=== PATIENT | female | born 1955 | race Caucasian/White ===

== ENCOUNTER 2018-03-01 15:33 | Inpatient (IN) | payer MEDICARE, OTHER ==
[2018-03-01] MEDS ORDERED: Fentanyl 100 MCG/2 ML VIAL ONE (17:17)
[2018-03-01 17:21] LABS: Troponin I 1.051 ng/mL (< 0.028)
[2018-03-01] MEDS ORDERED: Metoprolol Tartrate 5 MG/5 ML VIAL ONE (18:46)
[2018-03-01] MEDS ORDERED: Acetaminophen 500 MG TAB ONE (18:46)
[2018-03-01] MEDS ORDERED: RENALLY ADJUST ANTIBIOTICS IVPB PRN (19:54)
[2018-03-01] MEDS ORDERED: Bisacodyl 5 MG TAB PO PRN (19:57)
[2018-03-01] MEDS ORDERED: Dextrose 5% in Water 1,000 ML IV PRN (19:57)
[2018-03-01] MEDS ORDERED: Dextrose 50% Abboject 50 ML SYRINGE SLOW IVP PRN (19:57)
[2018-03-01] MEDS ORDERED: Acetaminophen 650 MG Suppository PR PRN (19:57)
[2018-03-01 20:01] LABS: Troponin I 1.051 ng/mL (< 0.028)
--- NOTE | 2018-03-01 20:12 | HP ---
PRIMARY CARE PROVIDER: Priti Acevedo MD CHIEF COMPLAINT: Altered mental status. HISTORY OF PRESENT ILLNESS: Ms. Miranda is a pleasant 62-year-old lady who was seen at [facility] on 03/01/2018 following transfer from [facility]. She is a [facility] resident. She reportedly had episodes of altered mental status at the snf and she was not doing any of her normal activities such as smoking and eating. She was also rep ortedly diaphoretic and had blood glucose of 305. She was also reportedly tachycardic and hypotensiv e. The patient currently is actually more alert. She knows that she is at [facility]. She is oriented to person as well. She is able to hold brief conversations, but is also teresita rgic at times. She denies any chest pain at this time. She reports that she has been feeling weak. She denies any nausea or vomiting. She denies any abdominal pain. She denies any dysuria or increased frequency of urination. She denies any fevers or chills. REVIEW OF SYSTEMS: All other systems were reviewed and found to be negative. PAST MEDICAL HISTORY: Dyslipidemia, hypertension, insulin-dependent diabetes mellitus, neuralgia fal se, tubulointerstitial nephritis, coronary artery disease, peripheral vascular disease, hyperthyroidi sm, polysubstance abuse, chronic kidney disease stage 3, anemia herniated disk at L5-S1, CVA with lef t hemiplegia, restless leg syndrome, recurrent urinary tract infections, retinopathy and left femoral neck fracture. PAST SURGICAL HISTORY: Hysterectomy, tubal ligation, right below knee amputation, left above knee am putation, left fifth toe amputation, left nephrectomy, and partial diskectomy. PSYCHIATRIC HISTORY: Anxiety and depression. SOCIAL HISTORY: The patient denies alcohol use or recreational drug use. She smokes 1 pack of cigar ettes a day. CODE STATUS: She came with an out of hospital do not resuscitate order. I discussed with the huy etienne. She confirms that she is DNR. ALLERGIES: CODEINE, HYDROCODONE, MORPHINE, PHENERGAN. CURRENT MEDICATIONS: Gabapentin 300 mg 3 times a day, Levemir 40 units subcutaneously daily, Norvasc 5 mg daily, Zoloft 25 mg daily, aspirin 325 mg daily, tramadol 50 mg 2 times a day, Tylenol 500-1000 mg every 6 hours as needed, NovoLog by sliding scale, Zofran 4 mg every 6 hours as needed, hydrocort isone topical as needed, simvastatin 20 mg daily, senna with docusate 8.6/50 mg daily as needed, ferr ous sulfate 325 mg daily, Amitiza 24 mcg twice daily, Lopid 600 mg twice daily, and duloxetine 30 mg daily. PHYSICAL EXAMINATION: GENERAL: Ms. Jerez is sleepy, but arousable, not in acute distress. VITAL SIGNS: Blood pressure is 128/63, pulse 94, respiratory rate 14, and oxygen saturation 98% on r oom air. Earlier, she had pulse of 132 and respiratory rate of 21. Her T-max in the emergency room here was 101 degrees Fahrenheit. EYES: No scleral icterus. No conjunctival pallor. ENT: Dry mucosal membranes, no oropharyngeal erythema or exudates. NECK: Supple, nontender. Trachea is midline. RESPIRATORY: Accessory muscles of breathing are not active. Chest wall movements are symmetric bila terally. LUNGS: Clear to auscultation without wheeze, rhonchi, or crepitations. CARDIOVASCULAR: S1 and S2 are heard, tachycardic and regular. No carotid bruit, no pericardial rub. ABDOMEN: Soft, nontender, bowel sounds heard. NEUROLOGIC: Full neurologic examination not possible secondary to patient's noncooperation. No faci al droop. The patient has left-sided weakness. MUSCULOSKELETAL: Status post right below knee amputation and left above knee amputation. SKIN: No rashes or subcutaneous nodules. LYMPHATIC: No cervical lymphadenopathy. PSYCHIATRIC: Normal mood, normal affect, patient is oriented to person and place, not to time. DATABASE: Ms. Jerez's labs and investigations were reviewed. I reviewed her electrocardiogram, [facility] shows normal sinus rhythm, no ST changes to suggest an acute coronary syndrome. I also reviewed h er chest x-ray, which does not show any pulmonary infiltrates. She also had noncontrast CT scan of t brain, which did not show any acute hemorrhage. She has extensive bilateral infarct changes and a ssociated encephalomalacia. She has normal sodium, normal potassium, normal anion gap of 18, slightl y decreased carbon dioxide of 17, elevated blood urea nitrogen of 38, elevated creatinine of 2.86, la st known creatinine 0.87 on 10/11/2015, normal lactic acid, normal total bilirubin, normal AST, krystina l ALT, normal alkaline phosphatase, elevated troponin I of 1.051, normal albumin, leukocytosis with 1 8,400 white cells, of which 17% are from band neutrophils and 70% are neutrophils, normal hemoglobin, normal platelet count and urinalysis that is positive for moderate amount of leukocyte esterase and large amount of blood as well as trace amount of ketones. ASSESSMENT AND PLAN: Ms. Jerez is a pleasant 62-year-old lady who was seen at [facility] on 03/01/2018. Her problem list includes: 1. Non-ST elevation myocardial infarction: Ms. Jerez is presenting with non-ST elevation myocardia l infarction. She will be admitted to the hospital for further management including aspirin. She matamoros s already received a dose of Lovenox and given her renal insufficiencies status, we will decide on fu rther doses in the morning. Alternatively, she may need heparin drip. Cardiology service will be co nsulted. Alternate diagnosis could be demand ischemia secondary to sepsis and from urinary tract inf ection. 2. Sepsis: Her presentation meets the criteria for sepsis. She will be admitted to the hospital an d will receive intravenous fluids and antibiotics. 3. Urinary tract infection. She has received ceftriaxone, which I will continue. 4. Hypertension: Monitor vital signs, titrate antihypertensives as needed. 5. Diabetes mellitus. Start Accu-Cheks, insulin sliding scale. 6. Acute on chronic renal insufficiency. Provide intravenous fluids, recheck creatinine level. 7. Dyslipidemia: Continue statin. Ms. Jerez had urinary tract infection with ESBL positive Escherichia coli in 2013, although she had subsequent infections with Escherichia coli that were either pansensitive or only resistant to fluoro quinolones and ampicillin. Given the acuity of her presentation, I am electing to treat her with int ravenous vancomycin to cover other sources of infection as well as intravenous meropenem to cover ESB L Escherichia coli. We will narrow down the antibiotic spectrum once cultures available. We will al so order blood cultures and urine cultures. Many thanks for allowing me to participate in your patient's care. Please feel free to contact me wi th any questions or concerns. LEVEL OF RISK: High. LEVEL OF COMPLEXITY: High.
[2018-03-01] MEDS ORDERED: Ibuprofen 200 MG TAB ONE (20:23)
[2018-03-01] MEDS ORDERED: Norepinephrine 8 MG/0.9% NS 250 ML ONE (21:43)
[2018-03-01] MEDS ORDERED: MEROPENEM 1 GM/50 ML 1 GM in Premix Bag 1 BAG IVPB SCH (22:00)
--- NOTE | 2018-03-01 22:55 | RAD ---
PORTABLE AP CHEST X-RAY 03/01/18 HISTORY: Central line placement. COMPARISON: 03/01/18 at 1259 hours. FINDINGS: There has been interval placement of right internal jugular vein central venous catheter with tip ove rlying the expected location of the SVC. No pneumothorax or pleural effusion is seen. There is mild p rominence of the right paramediastinal soft tissues, but this is similar to a study on 04/15/15 and m ay be related to vascular structures. Calcified granuloma is seen at the lateral right lung base. The cardiac silhouette is magnified by projection. Pulmonary vasculature is within normal limits. The scarlett ngs are clear. No other interval change. IMPRESSION: Interval placement of a right internal jugular vein central venous catheter without evidence of pneum othorax. POS: JACQUELINE
[2018-03-01 23:37] LABS: Lactic Acid 3.2 mmol/L (0.5-2.2)
[2018-03-01 23:48] LABS: Troponin I 1.214 ng/mL (< 0.028)
[2018-03-02] MEDS ORDERED: Acetaminophen 325 MG TAB ONE (00:44)
[2018-03-02] MEDS ORDERED: Vancomycin HCl 1 GM in Premix Bag 1 BAG IVPB SCH (01:30)
[2018-03-02] MEDS ORDERED: MEROPENEM 1 GM/50 ML 1 GM in Premix Bag 1 BAG IVPB SCH (02:00)
[2018-03-02] MEDS ORDERED: cefTRIAXone\\ROCEPHIN 1 GM VIAL ONE (02:17)
[2018-03-02 03:55] LABS: Hemoglobin 11.6 g/dL (12.0-16.0); Mean Corpuscular HGB CONC 34.1 g/dL (32.0-36.0); Mean Corpuscular Hemoglobin 32.8 pg (27.0-31.0); Mean Corpuscular Volume 96.2 fL (78.0-98.0); Mean Platelet Volume 10.2 fL (7.4-10.4); Platelet Count 148 thou/uL (130-400); RBC Distribution Width 11.9 % (11.5-14.5); Red Blood Cell (RBC) Count 3.53 mill/uL (4.20-5.40); White Blood Cell (WBC) Count 19.9 thou/uL (4.8-10.8)
[2018-03-02 03:56] LABS: Band 40 % (5-11); Lymphocytes 2 % (21-51); MDiff Complete? YES; Metamyelocyte 4 % (0-0); Monocytes 1 % (0-10); Neutrophil 53 % (42-75); PLT Morphology Comment Appears Adequate
[2018-03-02 04:03] LABS: Anion Gap 21 mmol/L (10-20); BUN (Urea Nitrogen) 42 mg/dL (9.8-20.1); Calc. Creatinine Clearance 0 mL/min (70-130); Carbon Dioxide 10 mmol/L (22-29); Chloride 112 mmol/L (98-107); Estimated GFR-MDRD 13; Glucose 181 mg/dL (70-105); Potassium 4.5 mmol/L (3.5-5.1); Sodium 138 mmol/L (136-145)
[2018-03-02] MEDS ORDERED: Fentanyl 100 MCG/2 ML VIAL SLOW IVP PRN (04:05)
[2018-03-02] MEDS: Sodium Chloride 0.9% 1,000 ML IV SCH ×2 (04:07→05:53)
[2018-03-02] MEDS: Nicotine 21 MG PATCH TD SCH ×2 (04:09→21:11)
[2018-03-02] MEDS ORDERED: Vancomycin HCl 750 MG in Sodium Chloride 0.9% 250 ML 250 ML IVPB SCH (04:15)
[2018-03-02 04:34] VITALS: BMI 23.7
[2018-03-02] MEDS ORDERED: Norepinephrine 8 MG/250 ML BAG IVPB PRN (04:35)
[2018-03-02] MEDS: HumaLOG 300 UNITS/3 ML VIAL SC PRN ×2 (05:59→11:19)
[2018-03-02] MEDS: Sodium Chloride 0.45% 1,000 ML IV SCH ×3 (10:15→21:07)
[2018-03-02] MEDS ORDERED: Sodium Chloride 0.45 % 250 ML BAG IV SCH (10:15)
--- NOTE | 2018-03-02 10:18 | PQF ---
DATE: 03-02-18 ATTN: DR. BERTIN HERNANDEZ Please exercise your independent, professional judgment in responding to the clarification form. Clinical indicators are provided on the bottom of this form for your review Please check appropriate box(s): [ x ] Acute Renal Failure (ARF) / Acute Kidney Injury (ALEISHA) [ ] Acute on Chronic Renal Failure please specify Stage of CKD (see below) [ ] CKD without ARF/ALEISHA please specify Stage of CKD [ ] Other diagnosis [ ] Unable to determine In addition, please specify: Present on Admission (POA): [ ] Yes [ ] No [ ] Unable to determine National Kidney Foundation Guidelines for CKD Staging Stage I Kidney damage with normal or increased GFR GFR > 90 Stage II Kidney damage with mildly decreased GFR GFR 60- 89 Stage III Kidney damage with moderately decreased GFR GFR 30-59 Stage IV Kidney damage with severely decreased GFR GFR 16-29 Stage V Kidney failure GFR<15 ESRD End Stage Renal Disease On dialysis Acute Renal Failure/Acute Kidney Failure defined as: Increases in SCr by (>) 0.3 mg/dl within 48 hours OR- Increases in SCr by (>) 1.5 times baseline, known or presumed to have occurred within the prior 7 days OR- Urine volume < 0.5 ml/kg/hour for 6 hours (KDIGO supplement 2012 for RIFLE/ELVIN criteria) For continuity of documentation, please document condition throughout progress notes and discharge summary. Thank You. CLINICAL INDICATORS - SIGNS / SYMPTOMS / LABS ER: ARF, PAST MEDICAL HX CKD 3 H&P: PAST MEDICAL HX: CKD 3 H&P: ACUTE ON CHRONIC RENAL INSUFFICIENCY. PROVIDE IVF, RECHECK CREATININE LEVEL. GFR: 03-02-18: 13 CREATININE: 03-02-18: 3.53 BUN: 03-02-18: 42 RISK FACTORS: H&P: SEPSIS, NSTEMI, UTI, A CUTE ON CHRONIC INSUFF. ER: HX OF TABULO-INTERSTITIAL NEPHRITIS, CKD3 TREATMENTS: ER: NS IVF H&P: ACUTE ON CHRONIC RENAL INSUFFICIENCY. PROVIDE IVF, RECHECK CREATININE LEVEL. (This form is maintained as a part of the permanent medical record) 2014 [employer]. All Rights Reserved [email or web address] [email or web address] Office: [phone] EMELIA
[2018-03-02] MEDS ORDERED: Sodium Chloride 0.45% 500 ML IV SCH (10:30)
--- NOTE | 2018-03-02 12:25 | PDOC.PN ---
- Subjective Encounter Start Date: 03/02/18 Encounter Start Time: 11:00 Subjective: awakens easily, but lethargic -: follows simple verbal stimuli -: no sob - Objective Resuscitation Status: Resuscitation Status DNR:Do Not Resuscitate MAR Reviewed: Yes Vital Signs & Weight: Vital Signs (12 hours) Temp Pulse Resp Pulse Ox 03/02/18 11:00 98.8 F 03/02/18 08:00 98.4 F 104 H 21 H 03/02/18 07:00 98.4 F 03/02/18 04:00 98.8 F 93 14 93 L Weight Weight 151 lb 10.848 oz Most Recent Monitor Data Heart Rate from ECG 126 NIBP 109/62 NIBP BP-Mean 71 Respiration from ECG 25 SpO2 95 I&O: 03/01/18 03/02/18 03/03/18 06:59 06:59 06:59 Intake Total 846 Output Total 0 Balance 846 Result Diagrams: 03/02/18 03:26 03/02/18 03:26 Additional Labs: Accuchecks 03/02/18 03/02/18 11:07 05:55 POC Glucose 159 H 195 H Phys Exam - Physical Examination HEENT: PERRLA, sclera anicteric Neck: no JVD, supple Respiratory: no wheezing, no rales Cardiovascular: RRR, no significant murmur Gastrointestinal: soft, non-tender, positive bowel sounds Musculoskeletal: pulses present left aka, right bka Neurological: non-focal, moves all 4 limbs Dx/Plan (1) Urinary tract infection Status: Acute Qualifiers: Urinary tract infection type: acute cystitis Hematuria presence: without hematuria Qualified Code(s): N30.00 - Acute cystitis without hematuria (2) Acute encephalopathy Code(s): G93.40 - ENCEPHALOPATHY, UNSPECIFIED Status: Acute (3) Sepsis Code(s): A41.9 - SEPSIS, UNSPECIFIED ORGANISM Status: Acute Qualifiers: Sepsis type: sepsis due to unspecified organism Qualified Code(s): A41.9 - Sepsis, unspecified organism (4) Dehydration, moderate Code(s): E86.0 - DEHYDRATION Status: Acute (5) Hemiparesis due to old cerebrovascular accident Code(s): I69.359 - HEMIPLGA FOLLOWING CEREBRAL INFARCTION AFFECTING UNSP SIDE Status: Chronic Comment: left hemiplegia with contracture in UE (6) h/o left nephrectomy Status: Chronic (7) PVD (peripheral vascular disease) Code(s): I73.9 - PERIPHERAL VASCULAR DISEASE, UNSPECIFIED Status: Chronic (8) Anemia Code(s): D64.9 - ANEMIA, UNSPECIFIED Status: Chronic Qualifiers: Anemia type: unspecified type Qualified Code(s): D64.9 - Anemia, unspecified (9) CAD (coronary artery disease) Code(s): I25.10 - ATHSCL HEART DISEASE OF [place] CORONARY ARTERY W/O ANG PCTRS Status: Chronic Qualifiers: Coronary Disease-Associated Artery/Lesion type: [place] artery [place] vs. transplanted heart: [place] heart Associated angina: with stable angina Qualified Code(s): I25.118 - Atherosclerotic heart disease of [place] coronary artery with other forms of angina pectoris (10) DM type 2 (diabetes mellitus, type 2) Status: Chronic Qualifiers: Diabetes mellitus skilled nursing insulin use: with skilled nursing use Diabetes mellitus complication status: with kidney complications Diabetes mellitus complication detail: with chronic kidney disease Chronic kidney disease stage : stage 3 (moderate) Qualified Code(s): E11.22 - Type 2 diabetes mellitus with diabetic chronic kidney disease; N18.3 - Chronic kidney disease, stage 3 ( moderate); Z79.4 - intermediate accountant (current) use of insulin (11) HLD (hyperlipidemia) Code(s): E78.5 - HYPERLIPIDEMIA, UNSPECIFIED Status: Chronic Qualifiers: Hyperlipidemia type: unspecified Qualified Code(s): E78.5 - Hyperlipidemia , unspecified (12) HTN (hypertension) Code(s): I10 - ESSENTIAL (PRIMARY) HYPERTENSION Status: Chronic Comment: currently hypotensive due to sepsis (13) NSTEMI (non-ST elevated myocardial infarction) Code(s): I21.4 - NON-ST ELEVATION (NSTEMI) MYOCARDIAL INFARCTION Status: Acute - Plan taylor cultures including urine if not done so far -: is off levophed, getting 1 liter bolus fluids, then 1/2 ns -: is on vanc and meropenem, has 40% bands -: add aspirin, echo -: watch for renal function, creatinine around 3.5, may cancel cardio consult * . Review of Systems - Medications/Allergies Allergies/Adverse Reactions: Allergies Allergy/AdvReac Type Severity Reaction Status Date / Time codeine Allergy Severe Short of Verified 10/09/15 22:41 Breath hydrocodone Allergy Emesis Verified 10/09/15 22:41 morphine Allergy Verified 10/09/15 22:41 promethazine HCl Allergy Emesis Verified 10/09/15 22:41 [From Phenergan] BLACK IBRAHIM SODA Allergy Mild ITCH Uncoded 10/18/14 14:28 Medications: Current Medications Acetaminophen (Tylenol) 650 mg PO Q4H PRN PRN Reason: Headache/Fever or Pain Acetaminophen (Tylenol) 650 mg MT Q4H PRN PRN Reason: Headache/Fever or Pain Bisacodyl (Dulcolax) 10 mg PO DAILYPRN PRN PRN Reason: Constipation Dextrose/Water (Dextrose 50%) 25 gm SLOW IVP PRN PRN PRN Reason: Hypoglycemia Glucagon (Glucagon) 1 mg IM PRN PRN PRN Reason: Hypoglycemia Dextrose/Water (D5w) 1,000 mls @ 0 mls/hr IV .Q0M PRN PRN Reason: Hypoglycemia Vancomycin HCl 750 mg/ Sodium (Chloride) 250 mls @ 250 mls/hr IVPB .PENDING LEVEL CARMELA Meropenem 500 mg/ Sodium (Chloride) 100 mls @ 200 mls/hr IVPB 0100,1300 [facility] Norepinephrine Bitartrate (Levophed) 250 mls @ 0 mls/hr IVPB INF PRN; Protocol PRN Reason: Blood Pressure Sodium Chloride (1/2 Normal Saline) 1,000 mls @ 100 mls/hr IV .Q10H [facility] Last Admin: 03/02/18 10:15 Dose: 1,000 mls Insulin Human Lispro (Humalog) 0 units SC .MILD SLIDING SCALE PRN PRN Reason: Mild Correctional Scale Last Admin: 03/02/18 11:19 Dose: 2 unit Miscellaneous Medication (Pharmacy To Dose) 1 each IVPB PRN PRN PRN Reason: Pharmacy to dose Nicotine (Nicoderm Patch) 21 mg TD Q24HR [facility] Last Admin: 03/02/18 04:09 Dose: Not Given Sodium Chloride (Flush - Normal Saline) 10 ml IVF Q12HR [facility] Last Admin: 03/02/18 09:00 Dose: 10 ml Sodium Chloride (Flush - Normal Saline) 10 ml IVF PRN PRN PRN Reason: Saline Flush
[2018-03-02] MEDS: Meropenem 500 MG in Sodium Chloride 0.9% 100 ML IVPB SCH (14:38)
--- NOTE | 2018-03-02 16:51 | CON ---
DATE OF CONSULTATION: 03/02/2018 REASON FOR CONSULTATION: Elevated troponin. HISTORY OF PRESENT ILLNESS: Ms. Jerez is an unfortunate 62-year-old woman who I have seen and evalu ated in the past. She has a history of CAD, status post stent placement to the LAD in 2008. She has had severe PVD with bilateral AKA. She has been lost to follow up. She was last seen in 2014. She recently presented with altered mental status. During my interview, she is very difficult to dir ect and vague in her symptoms. She currently resides in a retirement. Initial diagnosis of sepsis . She denies chest pain, pressure, or other associated symptoms. PAST MEDICAL HISTORY: CAD status post stent placement, hyperlipidemia, hypertension, PVD, status pos t AKA bilaterally, hyperthyroidism, polysubstance abuse, chronic kidney disease, anemia, CVA, retinop athy, hysterectomy, BTL, nephrectomy, diskectomy, anxiety disorder, depression. SOCIAL HISTORY: Positive tobacco use. ALLERGIES: CODEINE, HYDROCODONE, MORPHINE. HOME MEDICATIONS: Gabapentin, Zoloft, Levemir, tramadol, Zofran, hydrocortisone, simvastatin, ferrou s sulfate, Lopid and duloxetine. REVIEW OF SYSTEMS: Difficult to assess due to altered mental status. PHYSICAL EXAMINATION: VITAL SIGNS: Blood pressure 97/54, pulse 118, respirations 22, prescribed low dose norepinephrine. GENERAL: Patient is a pleasant female who is in no acute distress. The patient appears her stated a ge. NEUROLOGIC: The patient is alert and oriented times 3 with no focal neurologic deficits. HEENT: Sclerae without icterus. Mouth has moist mucous membranes with normal pallor. NECK: No JVD. Carotid upstroke brisk. No bruits bilaterally. LUNGS: Clear to auscultation with unlabored respirations. BACK: No scoliosis or kyphosis. CARDIAC: Regular rate and rhythm with normal S1 and S2. No S3 or S4 noted. No significant rubs, mu rmurs, thrills, or gallops noted throughout the precordium. PMI is not displaced. There is no corby ternal heave. ABDOMEN: Soft, nontender, nondistended. No peritoneal signs present. No hepatosplenomegaly. No ab normal striae. EXTREMITIES: Bilateral AKA. SKIN: No gross abnormalities. PERTINENT LABORATORY DATA: White blood cell count 19,000, hemoglobin 11.6, platelet count 148. Crea tinine 3.57. Peak troponin 1.2. IMPRESSION: 1. Elevated troponin. 2. Altered mental status. 3. ?Sepsis. 4. Severe coronary artery disease, status post stent placement. RECOMMENDATIONS: Ms. Jerez has no current symptoms suggesting angina. She has no acute finding on her EKG. It is likely demand ischemia. At this point, I recommend continued conservative therapy. Recommend continuing pressor support with norepinephrine. She has been covered with antibiotic thera py.
[2018-03-02] MEDS: Acetaminophen 325 MG TAB PO PRN ×2 (17:10→21:22)
[2018-03-03] MEDS: Meropenem 500 MG in Sodium Chloride 0.9% 100 ML IVPB SCH (01:47)
[2018-03-03 02:21] LABS: Vancomycin, Random 12.3 ug/mL (See Comment)
--- NOTE | 2018-03-03 02:50 | CON ---
DATE OF CONSULTATION: 03/02/2018 Ms. Jerez is a 62-year-old female who has peripheral vascular disease and coronary disease. She has had [id number] amputations. She is a poor historian. She is residing in a fdc. She had no complaints when I evaluated her. I was consulted because of her presence in the Critical Care Unit. Apparently, she was admitted with hypotension. PAST MEDICAL HISTORY: Remarkable for, 1. Hyperthyroidism. 2. History of substance abuse. 3. History of chronic kidney disease. 4. History of cerebrovascular accident. 5. History of retinopathy. 6. Status post tubal ligation. 7. Status post hysterectomy. 8. History of nephrectomy. 9. History of diskectomy. 10. History of anxiety and depression. SOCIAL HISTORY: She is a smoker, is not a drinker. FAMILY HISTORY: Not obtained. ALLERGIES: HYDROCODONE, CODEINE, and MORPHINE. MEDICATIONS PRIOR TO ADMISSION: Gabapentin, Zoloft, insulin, tramadol, Zofran, hydrocortisone, simvastatin, iron, Lopid, duloxetine. REVIEW OF SYSTEMS: 10 point review of systems completed, not obtainable. PHYSICAL EXAMINATION: GENERAL: Ms. Jerez is a 62-year-old female who has peripheral vascular disease and coronary disease. VITAL SIGNS: Blood pressure is 101/60, heart rate 105, respiratory rates in the teens, oximetry is 94. HEENT: Sclerae are anicteric. Extraocular movements appeared to be full. NECK: Without lymphadenopathy. LUNGS: Clear anteriorly. HEART: Regular rhythm. No S3. ABDOMEN: Soft and nontender. EXTREMITIES: Her amputation sites are well healed. Left AKA, Right BKA LABORATORY DATA: White count 19.9, hemoglobin 11.6, platelets 148. Creatinine is 3.53 (with no legs), potassium is 4.5, chloride is 112, bicarbonate is 10, anion gap 16. IMPRESSION: Hypotension. It is unclear whether or not she is just severely dehydrated or septic. Microbiology cultures are negative at 24 hours. There is no urinalysis here. Her urine specimen at an outside hospital showed 21-50 red cells and greater than 50 white cells, but no positive cultures come back yet. She appears to be clinically improving, at least stable. She is a DO NOT RESUSCITATE patient. She remains stable. She will be transferred out of Critical Care Unit. This is a 50-minute consult, with greater than 50% of the time spent on the unit coordinating care. EMELIA
[2018-03-03] MEDS ORDERED: Vancomycin HCl 500 MG in Sodium Chloride 0.9% 100 ML IVPB SCH (03:00)
[2018-03-03] MEDS: Sodium Chloride 0.45% 1,000 ML IV SCH (05:37)
[2018-03-03 08:40] LABS: Anion Gap 15 mmol/L (10-20); BUN (Urea Nitrogen) 54 mg/dL (9.8-20.1); Calc. Creatinine Clearance 14 mL/min (70-130); Calcium 7.5 mg/dL (7.8-10.44); Carbon Dioxide 13 mmol/L (22-29); Chloride 108 mmol/L (98-107); Estimated GFR-MDRD 10; Glucose 71 mg/dL (70-105); Sodium 132 mmol/L (136-145)
[2018-03-03 08:55] LABS: Band 22 % (5-11); Hemoglobin 9.8 g/dL (12.0-16.0); Lymphocytes 13 % (21-51); MDiff Complete? YES; Mean Corpuscular HGB CONC 33.6 g/dL (32.0-36.0); Mean Corpuscular Hemoglobin 32.4 pg (27.0-31.0); Mean Corpuscular Volume 96.5 fL (78.0-98.0); Mean Platelet Volume 11.1 fL (7.4-10.4); Monocytes 5 % (0-10); Neutrophil 60 % (42-75); PLT Morphology Comment Appears Decreased; Platelet Count 67 thou/uL (130-400); RBC Distribution Width 11.9 % (11.5-14.5); Red Blood Cell (RBC) Count 3.03 mill/uL (4.20-5.40); White Blood Cell (WBC) Count 6.3 thou/uL (4.8-10.8)
[2018-03-03] MEDS: Aspirin 325 mg Enteric Coated Tablet PO SCH (10:22)
--- NOTE | 2018-03-03 10:56 | PDOC.PN ---
- Subjective Encounter Start Date: 03/03/18 Encounter Start Time: 09:20 Subjective: still lethargic but responds to few questions -: moves her right extre well -: has not eaten her breakfast - Objective Resuscitation Status: Resuscitation Status DNR:Do Not Resuscitate MAR Reviewed: Yes Vital Signs & Weight: Vital Signs (12 hours) Temp Pulse Resp Pulse Ox 03/03/18 08:00 97.9 F 03/03/18 07:55 91 L 03/03/18 04:00 98.1 F 03/03/18 01:00 97.8 F 102 H 17 94 L 03/03/18 00:00 97.8 F Weight Weight 151 lb 10.848 oz Most Recent Monitor Data Heart Rate from ECG 104 NIBP 134/71 NIBP BP-Mean 93 Respiration from ECG 30 SpO2 93 I&O: 03/02/18 03/03/18 03/04/18 06:59 06:59 06:59 Intake Total 4876 Output Total 27 0 Balance 4849 0 Result Diagrams: 03/03/18 08:07 03/03/18 08:07 Additional Labs: Accuchecks 03/03/18 03/02/18 03/02/18 05:39 21:15 17:06 POC Glucose 69 L 91 96 03/02/18 03/02/18 16:20 11:07 POC Glucose 113 H 159 H Phys Exam - Physical Examination HEENT: PERRLA, moist MMs Neck: no JVD, supple Respiratory: no wheezing, no rales Cardiovascular: RRR, no significant murmur Gastrointestinal: soft, no distention, positive bowel sounds Musculoskeletal: no edema, pulses present left hemiplegia Dx/Plan (1) ALEISHA (acute kidney injury) Code(s): N17.9 - ACUTE KIDNEY FAILURE, UNSPECIFIED Status: Acute (2) Urinary tract infection Status: Acute Qualifiers: Urinary tract infection type: acute cystitis Hematuria presence: without hematuria Qualified Code(s): N30.00 - Acute cystitis without hematuria (3) Acute encephalopathy Code(s): G93.40 - ENCEPHALOPATHY, UNSPECIFIED Status: Acute (4) Sepsis Code(s): A41.9 - SEPSIS, UNSPECIFIED ORGANISM Status: Acute Qualifiers: Sepsis type: sepsis due to unspecified organism Qualified Code(s): A41.9 - Sepsis, unspecified organism (5) Dehydration, moderate Code(s): E86.0 - DEHYDRATION Status: Acute (6) Hemiparesis due to old cerebrovascular accident Code(s): I69.359 - HEMIPLGA FOLLOWING CEREBRAL INFARCTION AFFECTING UNSP SIDE Status: Chronic Comment: left hemiplegia with contracture in UE (7) h/o left nephrectomy Status: Chronic (8) PVD (peripheral vascular disease) Code(s): I73.9 - PERIPHERAL VASCULAR DISEASE, UNSPECIFIED Status: Chronic (9) Anemia Code(s): D64.9 - ANEMIA, UNSPECIFIED Status: Chronic Qualifiers: Anemia type: unspecified type Qualified Code(s): D64.9 - Anemia, unspecified (10) CAD (coronary artery disease) Code(s): I25.10 - ATHSCL HEART DISEASE OF [place] CORONARY ARTERY W/O ANG PCTRS Status: Chronic Qualifiers: Coronary Disease-Associated Artery/Lesion type: [place] artery [place] vs. transplanted heart: [place] heart Associated angina: with stable angina Qualified Code(s): I25.118 - Atherosclerotic heart disease of [place] coronary artery with other forms of angina pectoris (11) DM type 2 (diabetes mellitus, type 2) Status: Chronic Qualifiers: Diabetes mellitus alf insulin use: with intermediate accountant use Diabetes mellitus complication status: with kidney complications Diabetes mellitus complication detail: with chronic kidney disease Chronic kidney disease stage : stage 3 (moderate) Qualified Code(s): E11.22 - Type 2 diabetes mellitus with diabetic chronic kidney disease; N18.3 - Chronic kidney disease, stage 3 ( moderate); Z79.4 - intermediate accountant (current) use of insulin (12) HLD (hyperlipidemia) Code(s): E78.5 - HYPERLIPIDEMIA, UNSPECIFIED Status: Chronic Qualifiers: Hyperlipidemia type: unspecified Qualified Code(s): E78.5 - Hyperlipidemia , unspecified (13) HTN (hypertension) Code(s): I10 - ESSENTIAL (PRIMARY) HYPERTENSION Status: Chronic Comment: currently hypotensive due to sepsis (14) NSTEMI (non-ST elevated myocardial infarction) Code(s): I21.4 - NON-ST ELEVATION (NSTEMI) MYOCARDIAL INFARCTION Status: Acute - Plan continue 1/2 NS, renal function is worse this am -: on meropenem and vanc dosed for current renal function -: d/w for neph consult -: renal usg -: encourage po intake, oob to chair as tolerated, reg diet * . Review of Systems - Medications/Allergies Allergies/Adverse Reactions: Allergies Allergy/AdvReac Type Severity Reaction Status Date / Time codeine Allergy Severe Short of Verified 10/09/15 22:41 Breath hydrocodone Allergy Emesis Verified 10/09/15 22:41 morphine Allergy Verified 10/09/15 22:41 promethazine HCl Allergy Emesis Verified 10/09/15 22:41 [From Phenergan] BLACK IBRAHIM SODA Allergy Mild ITCH Uncoded 10/18/14 14:28 Medications: Current Medications Acetaminophen (Tylenol) 650 mg PO Q4H PRN PRN Reason: Headache/Fever or Pain Last Admin: 03/02/18 21:22 Dose: 650 mg Acetaminophen (Tylenol) 650 mg [place] Q4H PRN PRN Reason: Headache/Fever or Pain Aspirin (Ecotrin) 325 mg PO DAILY [facility] Last Admin: 03/03/18 10:22 Dose: 325 mg Bisacodyl (Dulcolax) 10 mg PO DAILYPRN PRN PRN Reason: Constipation Last Admin: 03/02/18 23:18 Dose: 10 mg Dextrose/Water (Dextrose 50%) 25 gm SLOW IVP PRN PRN PRN Reason: Hypoglycemia Glucagon (Glucagon) 1 mg IM PRN PRN PRN Reason: Hypoglycemia Dextrose/Water (D5w) 1,000 mls @ 0 mls/hr IV .Q0M PRN PRN Reason: Hypoglycemia Norepinephrine Bitartrate (Levophed) 250 mls @ 0 mls/hr IVPB INF PRN; Protocol PRN Reason: Blood Pressure Sodium Chloride (1/2 Normal Saline) 1,000 mls @ 100 mls/hr IV .Q10H [facility] Last Admin: 03/03/18 05:37 Dose: 1,000 mls Meropenem 500 mg/ Sodium (Chloride) 100 mls @ 200 mls/hr IVPB DAILY [facility] Insulin Human Lispro (Humalog) 0 units SC .MILD SLIDING SCALE PRN PRN Reason: Mild Correctional Scale Last Admin: 03/02/18 11:19 Dose: 2 unit Miscellaneous Medication (Pharmacy To Dose) 1 each IVPB PRN PRN PRN Reason: Pharmacy to dose Nicotine (Nicoderm Patch) 21 mg TD Q24HR [facility] Last Admin: 03/02/18 21:11 Dose: Not Given Sodium Chloride (Flush - Normal Saline) 10 ml IVF Q12HR [facility] Last Admin: 03/03/18 10:22 Dose: 10 ml Sodium Chloride (Flush - Normal Saline) 10 ml IVF PRN PRN PRN Reason: Saline Flush
--- NOTE | 2018-03-03 12:38 | PDOC.CTH ---
Cardiology Progress Note - Subjective Pt lethargic today. Asked pt to open her eyes and she responded by saying it hurts to open eyes. - Objective Vital Signs Temp Pulse Resp Pulse Ox 03/03/18 12:00 97.8 F 03/03/18 08:00 97.9 F 90 18 97 03/03/18 07:55 91 L 03/03/18 04:00 98.1 F 03/03/18 01:00 97.8 F 102 H 17 94 L Weight 151 lb 10.848 oz 03/02/18 03/03/18 03/04/18 06:59 06:59 06:59 Intake Total 4876 120 Output Total 27 0 Balance 4849 120 - Physical Examination General/Neuro: NAD Neck: no JVD present Lungs: CTA, unlabored respirations Heart: PMI normal, RRR Abdomen: no HSM, NT/ND, soft - Labs Result Diagrams: 03/03/18 08:07 03/03/18 08:07 Troponin/CKMB Troponin I 1.214 ng/mL (< 0.028) H* 03/01/18 23:01 - Assessment/Plan 1. CAD Increased troponin PVD RF Non-compliance Tobacco use CV status stable Increase troponin secondary to demand ishcmeia. No new CV recs On Abx Renal consult Please re-consult if CV changes noted.
--- NOTE | 2018-03-03 13:06 | PRG ---
DATE OF SERVICE: 03/03/2018 Ms. Jerez makes eye contact, but she has limited verbal response. She is in no distress. PHYSICAL EXAMINATION: VITAL SIGNS: She is afebrile. Blood pressure 142/71, heart rate 102, respiratory rate is 22. LUNGS: Clear. CARDIOVASCULAR: Regular rhythm. S1 and S2 are normal. ABDOMEN: Soft and nontender. EXTREMITIES: With her BKA and AKA with no change. LABORATORY DATA: White count is 6.3, hemoglobin 9.8 down from 11.6, platelets 67,000. Sodium 132, potassium 4, chloride 108, bicarbonate 13, BUN 54, creatinine 4.66. Creatinine was 3.53 yesterday. This is in spite of a 4849 mL positive fluid balance. IMPRESSION: 1. Diffuse atherosclerotic vascular disease. 2. Progressive renal dysfunction in the face of significant positive fluid balance. 3. History of medical noncompliance. 4. Tobacco use. 5. Demand ischemia. She is a do not resuscitate patient. No critical care resuscitation is needed at this point. I susp ect her renal function will continue to decline. There is really no clear reason to keep her in the ICU. I will decrease her IV fluids, given that her renal function is declining in the face of a significan tly positive fluid balance. She is encephalopathic as well and her nutritional support will likely become an issue.
--- NOTE | 2018-03-03 13:47 | CON ---
DATE OF CONSULTATION: 03/03/2018 REASON FOR CONSULTATION: Elevated creatinine. HISTORY OF PRESENT ILLNESS: This is a very pleasant 62-year-old female with a baseline creatinine of 1 who was admitted for acute pulmonary disease as well as an acute IN with hypertension. The patien t's creatinine has increased from a baseline of 0.8 in 2016 to 3.5 yesterday and 4.6 today. The julian ent is not making much urine. PAST MEDICAL HISTORY: Coronary stent placement, hyperlipidemia, AKA, CVA, hysterectomy, nephrectomy. Diskectomy, anxiety, depression AKA bilaterally. SOCIAL HISTORY: No alcohol. FAMILY HISTORY: Negative for ESRD. HOME MEDICATIONS: List reviewed. HOSPITAL MEDICATIONS: Reviewed. REVIEW OF SYSTEMS: Unable to assess due to altered mentation. PHYSICAL EXAMINATION: GENERAL: Patient is resting. VITAL SIGNS: Afebrile, pulse 100, breathing 16, blood pressure 90/50. OBJECTIVE: See above. Awake, alert, in no acute distress. GENERAL APPEARANCE AND MENTAL STATUS: Fair. HEAD/NECK: Normocephalic. Atraumatic. EYES: EOMI. No deformity. EARS: Clear. No ulcers. NOSE: Intact. No lesions. MOUTH: Clear. No discharge. THROAT: Clear. No exudate. LUNGS: Clear. No crackles. CARDIAC: S1, S2. No rub. ABDOMEN: Benign. BS+. GENITALIA/RECTUM: Prather absent. BACK/EXTREMITIES: Edema 0+ Ulcer- NEUROLOGICAL: The patient is somnolent. SKIN: Rash- Bruise- LYMPHATICS: Edema- Ulcer- LABORATORY: Creatinine 4.6, bicarbonate 13. Sodium 132. ASSESSMENT AND RECOMMENDATIONS: 1. Acute kidney injury with chronic kidney disease, most likely due to cardiorenal syndrome and prog ressive diabetic disease and no urgent indication for dialysis. 2. Metabolic acidosis. I would recommend sodium bicarbonate. 3. Anemia, stable. 4. Medication based on glomerular filtration rate are appropriate. No indication for dialysis at this time. We will follow renal function closely.
--- NOTE | 2018-03-03 14:53 | ULT ---
RIGHT RENAL UTLRASOUND UNILATERAL LIMITED: HISTORY: Acute kidney insufficiency with probable left nephrectomy. FINDINGS: There is moderate hydronephrosis with calyceal dilatation. The right kidney measures 13.6 x 5.6 x 5. 7 cm. 2.1 x 2.5 cm right renal cyst. The bladder is poorly seen because of Prather catheter in place. Exam is somewhat limited because of patient cooperation. IMPRESSION: At least moderate right renal hydronephrosis. No visualized left kidney, presumably left nephrectomy . Small right renal cyst. POS: JACQUELINE
[2018-03-03] MEDS: Nicotine 21 MG PATCH TD SCH (20:23)
[2018-03-03] MEDS: Acetaminophen 325 MG TAB PO PRN (20:24)
[2018-03-04] MEDS: Sodium Chloride 0.45% 1,000 ML IV SCH ×2 (01:07→20:10)
[2018-03-04] MEDS: Meropenem 500 MG in Sodium Chloride 0.9% 100 ML IVPB SCH (01:13)
[2018-03-04 02:21] LABS: Vancomycin, Trough 17.1 ug/mL
[2018-03-04 04:33] LABS: Anion Gap 17 mmol/L (10-20); BUN (Urea Nitrogen) 60 mg/dL (9.8-20.1); Calc. Creatinine Clearance 13 mL/min (70-130); Calcium 7.9 mg/dL (7.8-10.44); Chloride 108 mmol/L (98-107); Estimated GFR-MDRD 9; Glucose 74 mg/dL (70-105); Potassium 3.9 mmol/L (3.5-5.1); Sodium 130 mmol/L (136-145)
[2018-03-04 04:39] LABS: Band 17 % (5-11); Eosinophils 2 % (0-10); Hemoglobin 10.5 g/dL (12.0-16.0); Lymphocytes 9 % (21-51); MDiff Complete? YES; Mean Corpuscular HGB CONC 34.5 g/dL (32.0-36.0); Mean Corpuscular Volume 95.6 fL (78.0-98.0); Mean Platelet Volume 10.9 fL (7.4-10.4); Monocytes 4 % (0-10); Myelocyte 1 % (0-0); Neutrophil 67 % (42-75); PLT Morphology Comment Appears Decreased; Platelet Count 60 thou/uL (130-400); RBC Distribution Width 11.7 % (11.5-14.5); Red Blood Cell (RBC) Count 3.17 mill/uL (4.20-5.40)
[2018-03-04 04:41] LABS: Carbon Dioxide 9 mmol/L (22-29)
[2018-03-04] MEDS ORDERED: Sodium Bicarbonate Tab 325 MG TAB PO SCH (05:15)
[2018-03-04] MEDS: Aspirin 325 mg Enteric Coated Tablet PO SCH ×2 (10:19→10:35)
[2018-03-04] MEDS: Acetaminophen 325 MG TAB PO PRN (10:19)
--- NOTE | 2018-03-04 12:09 | PDOC.PN ---
- Subjective Encounter Start Date: 03/04/18 Encounter Start Time: 08:15 Subjective: awakens easily, converses a few sentences then stops -: no sob or abd pain - Objective Resuscitation Status: Resuscitation Status DNR:Do Not Resuscitate MAR Reviewed: Yes Vital Signs & Weight: Vital Signs (12 hours) Temp Pulse Resp BP Pulse Ox 03/04/18 08:14 99.5 F 105 H 18 120/65 94 L 03/04/18 04:00 98.3 F 103 H 20 138/77 95 03/04/18 00:09 98.8 F 106 H 20 115/62 96 Weight Weight 151 lb 10.848 oz Most Recent Monitor Data Heart Rate from ECG 106 NIBP 125/56 NIBP BP-Mean 67 Respiration from ECG 19 SpO2 95 I&O: 03/03/18 03/04/18 03/05/18 06:59 06:59 06:59 Intake Total 4876 2010. Output Total 27 3 Balance 4849 2007. Result Diagrams: 03/04/18 03:47 03/04/18 03:47 Additional Labs: Accuchecks 03/04/18 03/03/18 03/03/18 04:24 19:27 17:17 POC Glucose 91 70 78 03/03/18 15:54 POC Glucose 71 Phys Exam - Physical Examination HEENT: PERRLA, moist MMs Neck: no JVD, supple Respiratory: no wheezing, no rales Cardiovascular: RRR, no significant murmur Gastrointestinal: soft, no distention, positive bowel sounds Musculoskeletal: pulses present, edema present left hemiplegia Dx/Plan (1) ALEISHA (acute kidney injury) Code(s): N17.9 - ACUTE KIDNEY FAILURE, UNSPECIFIED Status: Acute (2) Urinary tract infection Status: Acute Qualifiers: Urinary tract infection type: acute cystitis Hematuria presence: without hematuria Qualified Code(s): N30.00 - Acute cystitis without hematuria (3) Acute encephalopathy Code(s): G93.40 - ENCEPHALOPATHY, UNSPECIFIED Status: Acute (4) Sepsis Code(s): A41.9 - SEPSIS, UNSPECIFIED ORGANISM Status: Acute Qualifiers: Sepsis type: sepsis due to unspecified organism Qualified Code(s): A41.9 - Sepsis, unspecified organism (5) Dehydration, moderate Code(s): E86.0 - DEHYDRATION Status: Acute (6) Hemiparesis due to old cerebrovascular accident Code(s): I69.359 - HEMIPLGA FOLLOWING CEREBRAL INFARCTION AFFECTING UNSP SIDE Status: Chronic Comment: left hemiplegia with contracture in UE (7) h/o left nephrectomy Status: Chronic (8) PVD (peripheral vascular disease) Code(s): I73.9 - PERIPHERAL VASCULAR DISEASE, UNSPECIFIED Status: Chronic (9) Anemia Code(s): D64.9 - ANEMIA, UNSPECIFIED Status: Chronic Qualifiers: Anemia type: unspecified type Qualified Code(s): D64.9 - Anemia, unspecified (10) CAD (coronary artery disease) Code(s): I25.10 - ATHSCL HEART DISEASE OF [place] CORONARY ARTERY W/O ANG PCTRS Status: Chronic Qualifiers: Coronary Disease-Associated Artery/Lesion type: [place] artery [place] vs. transplanted heart: [place] heart Associated angina: with stable angina Qualified Code(s): I25.118 - Atherosclerotic heart disease of [place] coronary artery with other forms of angina pectoris (11) DM type 2 (diabetes mellitus, type 2) Status: Chronic Qualifiers: Diabetes mellitus trauma therapist insulin use: with trauma therapist use Diabetes mellitus complication status: with kidney complications Diabetes mellitus complication detail: with chronic kidney disease Chronic kidney disease stage : stage 3 (moderate) Qualified Code(s): E11.22 - Type 2 diabetes mellitus with diabetic chronic kidney disease; N18.3 - Chronic kidney disease, stage 3 ( moderate); Z79.4 - retirement (current) use of insulin (12) HLD (hyperlipidemia) Code(s): E78.5 - HYPERLIPIDEMIA, UNSPECIFIED Status: Chronic Qualifiers: Hyperlipidemia type: unspecified Qualified Code(s): E78.5 - Hyperlipidemia , unspecified (13) HTN (hypertension) Code(s): I10 - ESSENTIAL (PRIMARY) HYPERTENSION Status: Chronic (14) NSTEMI (non-ST elevated myocardial infarction) Code(s): I21.4 - NON-ST ELEVATION (NSTEMI) MYOCARDIAL INFARCTION Status: Acute - Plan is on NS 50mls/hr, renal function is worsoning with acidosis -: aleisha per nephrology advice -: prognosis guarded, has some anasarca developing -: initial creatinine was 3.5 today its 5.0 -: continue full dose asp and meropenem renal dose * . PT to mobilize pt as tolerated, oob to chair or ambulate Review of Systems - Medications/Allergies Allergies/Adverse Reactions: Allergies Allergy/AdvReac Type Severity Reaction Status Date / Time codeine Allergy Severe Short of Verified 10/09/15 22:41 Breath hydrocodone Allergy Emesis Verified 10/09/15 22:41 morphine Allergy Verified 10/09/15 22:41 promethazine HCl Allergy Emesis Verified 10/09/15 22:41 [From Phenergan] BLACK IBRAHIM SODA Allergy Mild ITCH Uncoded 10/18/14 14:28 Medications: Current Medications Acetaminophen (Tylenol) 650 mg PO Q4H PRN PRN Reason: Headache/Fever or Pain Last Admin: 03/03/18 20:24 Dose: 650 mg Acetaminophen (Tylenol) 650 mg [place] Q4H PRN PRN Reason: Headache/Fever or Pain Aspirin (Ecotrin) 325 mg PO DAILY [facility] Last Admin: 03/04/18 10:35 Dose: Not Given Bisacodyl (Dulcolax) 10 mg PO DAILYPRN PRN PRN Reason: Constipation Last Admin: 03/02/18 23:18 Dose: 10 mg Dextrose/Water (Dextrose 50%) 25 gm SLOW IVP PRN PRN PRN Reason: Hypoglycemia Glucagon (Glucagon) 1 mg IM PRN PRN PRN Reason: Hypoglycemia Dextrose/Water (D5w) 1,000 mls @ 0 mls/hr IV .Q0M PRN PRN Reason: Hypoglycemia Meropenem 500 mg/ Sodium (Chloride) 100 mls @ 200 mls/hr IVPB 0100 [facility] Last Admin: 03/04/18 01:13 Dose: 100 mls Sodium Chloride (1/2 Normal Saline) 1,000 mls @ 50 mls/hr IV .Q20H [facility] Last Admin: 03/04/18 01:07 Dose: 1,000 mls Insulin Human Lispro (Humalog) 0 units SC .MILD SLIDING SCALE PRN PRN Reason: Mild Correctional Scale Last Admin: 03/02/18 11:19 Dose: 2 unit Miscellaneous Medication (Pharmacy To Dose) 1 each IVPB PRN PRN PRN Reason: Pharmacy to dose Nicotine (Nicoderm Patch) 21 mg TD Q24HR [facility] Last Admin: 03/03/18 20:23 Dose: Not Given Sodium Bicarbonate (Bicarbonate, Sodium) 325 mg PO BID [facility] Sodium Chloride (Flush - Normal Saline) 10 ml IVF Q12HR [facility] Last Admin: 03/04/18 10:19 Dose: Not Given Sodium Chloride (Flush - Normal Saline) 10 ml IVF PRN PRN PRN Reason: Saline Flush
[2018-03-04] MEDS: Sodium Bicarbonate 150 MEQ in Dextrose 5% in Water 1,000 ML IV SCH (13:48)
--- NOTE | 2018-03-04 14:37 | PRG ---
DATE OF SERVICE: 03/01/2018 SUBJECTIVE: A 62-year-old female being seen for acute kidney injury, progressive rise in creatinine. The patient denies any nausea, vomiting, or chest pain. PHYSICAL EXAMINATION: GENERAL: Awake, alert, in no acute distress. VITAL SIGNS: Patient is febrile at 101, pulse 109, breathing at 16, blood pressure 142/73. HEAD/NECK: Normocephalic. Atraumatic. EYES: EOMI. No deformity. EARS: Clear. No ulcers. NOSE: Intact. No lesions. MOUTH: Clear. No discharge. THROAT: Clear. No exudate. LUNGS: Clear. No crackles. CARDIAC: S1, S2. No rub. ABDOMEN: Benign. BS+. GENITALIA/RECTUM: Prather absent. BACK/EXTREMITIES: Edema 0+ Ulcer-. NEUROLOGICAL: Alert and motor intact. SKIN: Rash- Bruise- LYMPHATICS: Edema- Ulcer-. LABORATORY DATA: Show hemoglobin 10.5, bicarbonate 9, creatinine 5. ASSESSMENT AND PLAN: 1. Stage 5 chronic kidney disease with acute tubular necrosis, due to hydronephrosis multifactorial. We will plan Urology consult. 2. Acidosis. We will plan dialysis. 3. Hyperkalemia, stable. 4. Hyponatremia, stable. 5. Severe acidosis. I would start Bicarb drip. MTDD
[2018-03-04 14:48] LABS: Anion Gap 18 mmol/L (10-20); BUN (Urea Nitrogen) 63 mg/dL (9.8-20.1); Calc. Creatinine Clearance 12 mL/min (70-130); Calcium 8.1 mg/dL (7.8-10.44); Chloride 107 mmol/L (98-107); Estimated GFR-MDRD 8; Glucose 73 mg/dL (70-105); Potassium 4.1 mmol/L (3.5-5.1); Sodium 129 mmol/L (136-145)
[2018-03-04 14:53] LABS: HBSAg Index 0.17 S/CO (0-0.99); Hep B Core Total Ab Non-Reactive (NonReactive); Hep B Core Total Index 0.09 S/CO (0-0.79); Hep B Surf AB Non-Reactive (NonReactive); Hep B Surf Ag Non-Reactive S/CO (NonReactive); Hep C IgG Ab Non-Reactive (NonReactive); Hep C Index 0.03 S/CO (0-0.79)
[2018-03-04 14:58] LABS: Carbon Dioxide 8 mmol/L (22-29)
[2018-03-04 15:38] LABS: pH, Arterial 7.34 (7.35-7.45)
[2018-03-04 15:39] LABS: Actual Bicarbonate (HCO3a) 10.7 mEq/L (22-28); Base Excess (BEa) -13.1 mEq/L (-2.0 to +3.0); CO2 Tension 20.3 mmHg (35.0-45.0)
[2018-03-04 15:40] LABS: Calcium, Ionized 1.13 mmol/L (1.12-1.30); Carboxyhemoglobin (COHb) 0.8 gm% (0.0-3.0); Hemoglobin (Hb) 11.3 g/dL (12.0-16.0); Puncture Site RRA
[2018-03-04 15:41] LABS: ALV-art Gradient 119.145 (0-20)
--- NOTE | 2018-03-04 16:36 | RAD ---
CHEST ONE VIEW PORTABLE: 03/04/18 HISTORY: 62-year-old female with history of metabolic acidosis. Acute kidney insufficiency. Followup hypotensi on. COMPARISON: 03/01/18. There are new bilateral alveolar nodular parenchymal changes throughout almost the entire right lung and also within the left mid lung zone and left lower lobe. These have developed since a 03/01/18 study . Right jugulovenous catheter in place. Small bilateral pleural effusions. IMPRESSION: New extensive bilateral alveolar and interstitial parenchymal changes throughout the entire right leyla g involving the left mid and lower lung zones with bilateral pleural effusions certainly concerning f or bilateral pneumonia or less likely asymmetric edema. Continued short term followup suggested. POS: JACQUELINE
--- NOTE | 2018-03-04 16:39 | CT ---
CT ABDOMEN AND PELVIS NONCONTRAST: 03/04/18 HISTORY: Right flank pain. COMPARISON: 03/06/14. FINDINGS: Bilateral pleural fluid with dense infiltrates throughout each lung. Left kidney is again shown to be absent. There is moderate distention of the right renal collecting system to the level of a ureterop elvic junction calculus that is 0.8 cm diameter x 1.1 cm length. Tiny calcifications also are present within an anterior right renal calyx. Urinary bladder is decompressed by Prather catheter. Lack of con trast limits evaluation for other abnormalities. Small amount of free fluid is present within the dis tended portion of the pelvis and along the left pericolic gutter. Increased density and stranding thr oughout the subcutaneous fat. Prominent calcification of the arterial structures with arterial bypass evident. Degenerative changes lumbar spine. Internal fixation left hip. IMPRESSION: High grade obstruction at a right renal calculus measuring up to 1.1 cm at the ureteropelvic junction . Additional tiny nonobstructing bilateral renal calculi. Small amount of free fluid within the abdomen and appearance of anasarca within the subcutaneous tiss ues. Bilateral pleural fluid and dense bibasilar infiltrates. Atherosclerosis. Vascular disease. POS: [facility]
--- NOTE | 2018-03-04 20:06 | CON ---
DATE OF CONSULTATION: 03/04/2018 REQUESTING PHYSICIAN: Dr. Eng. REASON FOR CONSULTATION: Acute kidney injury, hydronephrosis with ureteral calculus and solitary kid ana. HISTORY OF PRESENT ILLNESS: Ms. Jerez is a 62-year-old female, who was admitted as a transfer from [facility] in [place] on 03/01/2018. She is a [facility] resident. She had some altered ment al status and was transported to the hospital. The patient was admitted for non-ST elevation OR as w ell as acute kidney injury and UTI. The patient had been stable, although her creatinine was worseni ng daily. A renal ultrasound was performed on 03/03/2018, which demonstrated mild right hydronephros is. Her creatinine worsened and on 03/04/2018, her creatinine was 5.52 with a BUN of 63. A CT of th e abdomen and pelvis was performed, which demonstrated a 1.1 cm at the right ureteropelvic junction a s well as some very small nonobstructing bilateral renal calculi. She has a solitary right kidney fo r unknown reason. Urology was consulted for further evaluation. The history was obtained from the nursing staff, Hospitalist Service, and medical record. The patien jaimie is unable to provide any significant history at this time secondary to altered mental status. Nurs ing reports her status has deteriorated throughout the day today. REVIEW OF SYSTEMS: Unable to obtain secondary to patient's condition. PAST MEDICAL HISTORY: Type 2 diabetes mellitus; dyslipidemia; hypertension; chronic kidney disease, stage 3; CVA with left hemiplegia; recurrent urinary tract infections. PAST SURGICAL HISTORY: Hysterectomy, tubal ligation, left nephrectomy, right BKA, left AKA, left fif th toe amputation, partial diskectomy. SOCIAL HISTORY: The patient has an extensive past smoking history and currently smokes 1 pack of cig arettes per day. No alcohol use. ALLERGIES: CODEINE, HYDROCODONE, MORPHINE, PHENERGAN. MEDICATIONS: See medical record. There are no changes in her home medications. PHYSICAL EXAMINATION: VITAL SIGNS: Temperature is 100.8, heart rate 109, respirations 22, oxygen saturation 95% on 3 liter s nasal cannula, blood pressure 144/78. GENERAL: She is resting comfortably, tachypneic, responds to stimuli. HEENT: Normocephalic, atraumatic. NECK: Supple. No masses or lymphadenopathy. CARDIOVASCULAR: Tachycardic, but regular. PULMONARY: Tachypneic, breathing unlabored, no wheezing. ABDOMEN: Soft, nontender/nondistended, no masses or organomegaly, no suprapubic tenderness to palpat ion, no CVA tenderness. EXTREMITIES: Bilateral amputations, upper extremities without edema. NEUROLOGIC: Responds to deep stimuli. RADIOLOGY DATA: CT abdomen and pelvis: Films were reviewed. This demonstrates a solitary right kid ana with moderate right hydroureteronephrosis secondary to a 1.1 cm stone in the right ureteropelvic junction. LABORATORY DATA: Sodium 129, potassium 4.1, chloride 107, bicarbonate 8, BUN 63, creatinine 5.52. W ivan blood cell count 5.0, hemoglobin 10.5, hematocrit 30.3, platelets 60. ASSESSMENT: A 62-year-old female with multiple chronic medical problems, currently with acute kidney injury, urinary tract infection, sepsis secondary to urinary tract infection, solitary right kidney, right ureteropelvic junction with moderate to severe right hydronephrosis. PLAN: The patient's clinical situation is deteriorating. She meets sepsis criteria. Her creatinine continues to rise. Given the fact that she has a solitary kidney and the presence of this obstructi ng ureteral calculus, I recommended urgent right ureteral stent placement to decompress the kidney. The stone will need to be managed in a staged fashion as a second procedure once infection is treated and the patient's clinical situation improves. There was no family currently at the bedside. We wi ll attempt to contact the patient's son for consent as well as to discuss the case with him. Thank you for allowing me to participate in the care of this patient.
[2018-03-04] MEDS: Sodium Bicarbonate Tab 325 MG TAB PO SCH (21:09)
--- NOTE | 2018-03-04 21:09 | PRG ---
DATE OF SERVICE: 03/04/2018 HISTORY: From the time of initial urologic consultation today until the present time, the patient co ntinued to clinically deteriorate. The plan was tentatively to place a right ureteral stent. As Saritha engel evaluated her, she became increasingly tachypneic. She had signs of fluid overload with dimi nished breath sounds. She was minimally responsive to deep stimuli. The patient had a DNR in the art. This was addressed with the patient's son. There was no power of commercial attorney at present. The [facility] anesthesiologist discussed the case extensively. General Surgery had previously been consulted to place a dialysis catheter in the patient. It was discussed with the patient's son that we would nee d to go ahead and do this under one anesthetic and the patient would need to remain intubated and will be transferred to the intensiv e care unit. The patient's son discussed this with various family members and they elected to not pr oceed with any intervention at this time. Per his report, the patient has expressed that she did not want any life-saving measures performed. It was discussed with him that there is a chance for recov annmarie if the stent is successfully placed, although the patient may require hemodialysis given her flui d overloaded status. He understood this and they elected not to proceed with any further interventio n. This was communicated with the Hospitalist staff. Urology may be reconsulted as necessary. Othe rwise, we will sign off now. Thank you for allowing me to participate in the care of this patient.
[2018-03-04] MEDS: Nicotine 21 MG PATCH TD SCH (21:10)
--- NOTE | 2018-03-04 21:46 | EKG ---
Test Reason : Blood Pressure : / mmHG Vent. Rate : 093 BPM Atrial Rate : 093 BPM P-R Int : 148 ms QRS Dur : 078 ms QT Int : 370 ms P-R-T Axes : 079 -08 027 degrees QTc Int : 460 ms Normal sinus rhythm Anterior infarct , age undetermined Abnormal ECG Confirmed by KAYLA SPRING M.D. ([id number]), scientific editor TRUDY MOYA ([id number] on 03/04/2018 9:46:32 PM Referred By: Confirmed By:KAYLA SPRING M.D.
[2018-03-05] MEDS: Meropenem 500 MG in Sodium Chloride 0.9% 100 ML IVPB SCH (00:55)
[2018-03-05] MEDS: Sodium Bicarbonate 150 MEQ in Dextrose 5% in Water 1,000 ML IV SCH ×2 (01:23→13:20)
[2018-03-05 04:55] LABS: Anion Gap 18 mmol/L (10-20); BUN (Urea Nitrogen) 66 mg/dL (9.8-20.1); Calc. Creatinine Clearance 13 mL/min (70-130); Carbon Dioxide 13 mmol/L (22-29); Chloride 106 mmol/L (98-107); Estimated GFR-MDRD 9; Glucose 141 mg/dL (70-105); Potassium 3.6 mmol/L (3.5-5.1); Sodium 133 mmol/L (136-145)
[2018-03-05 05:50] LABS: Band 3 % (5-11); Hemoglobin 10.3 g/dL (12.0-16.0); Hypochromia SLIGHT = 6-15 cells (100X) (0-5/hpf); Lymphocytes 2 % (21-51); MDiff Complete? YES; Mean Corpuscular HGB CONC 34.6 g/dL (32.0-36.0); Mean Corpuscular Hemoglobin 32.5 pg (27.0-31.0); Mean Platelet Volume 10.5 fL (7.4-10.4); Monocytes 4 % (0-10); Neutrophil 91 % (42-75); PLT Morphology Comment Appears Decreased; Platelet Count 64 thou/uL (130-400); RBC Distribution Width 11.8 % (11.5-14.5); Red Blood Cell (RBC) Count 3.15 mill/uL (4.20-5.40); White Blood Cell (WBC) Count 6.6 thou/uL (4.8-10.8)
[2018-03-05] MEDS: Sodium Bicarbonate Tab 325 MG TAB PO SCH ×2 (08:38→20:42)
[2018-03-05] MEDS: Aspirin 325 mg Enteric Coated Tablet PO SCH (08:38)
[2018-03-05] MEDS ORDERED: Tamsulosin HCl 0.4 MG CAP PO SCH (10:15)
--- NOTE | 2018-03-05 11:44 | PDOC.PN ---
- Subjective Encounter Start Date: 03/05/18 Encounter Start Time: 07:45 Subjective: awakens to touch, opens mouth and moves her legs to verbal stimuli -: not fully oriented, wants water - Objective Resuscitation Status: Resuscitation Status DNR:Do Not Resuscitate MAR Reviewed: Yes Vital Signs & Weight: Vital Signs (12 hours) Temp Pulse Resp BP Pulse Ox 03/05/18 07:31 98.5 F 97 20 130/58 L 92 L 03/05/18 04:41 98.3 F 100 20 118/68 91 L Weight Weight 151 lb 10.848 oz Most Recent Monitor Data Heart Rate from ECG 106 NIBP 125/56 NIBP BP-Mean 67 Respiration from ECG 19 SpO2 95 I&O: 03/04/18 03/05/18 03/06/18 06:59 06:59 06:59 Intake Total 2010.8 1807 Output Total 3 225 Balance 2007.8 1582 Result Diagrams: 03/05/18 04:28 03/05/18 04:28 Additional Labs: Accuchecks 03/05/18 03/04/18 03/04/18 05:30 21:32 16:45 POC Glucose 150 H 123 H 89 03/04/18 12:47 POC Glucose 85 Phys Exam - Physical Examination anasarca mild+ HEENT: PERRLA, moist MMs Neck: no nodes, no JVD Respiratory: no wheezing, no rales Cardiovascular: RRR, no significant murmur Gastrointestinal: soft, non-tender, positive bowel sounds Musculoskeletal: pulses present, edema present aka and bka Neurological: non-focal, moves all 4 limbs Dx/Plan (1) ALEISHA (acute kidney injury) Code(s): N17.9 - ACUTE KIDNEY FAILURE, UNSPECIFIED Status: Acute Comment: s/ p right UPJ obstruction (2) Urinary tract infection Status: Acute Qualifiers: Urinary tract infection type: acute cystitis Hematuria presence: without hematuria Qualified Code(s): N30.00 - Acute cystitis without hematuria (3) Acute encephalopathy Code(s): G93.40 - ENCEPHALOPATHY, UNSPECIFIED Status: Acute (4) Sepsis Code(s): A41.9 - SEPSIS, UNSPECIFIED ORGANISM Status: Acute Qualifiers: Sepsis type: sepsis due to unspecified organism Qualified Code(s): A41.9 - Sepsis, unspecified organism (5) Dehydration, moderate Code(s): E86.0 - DEHYDRATION Status: Resolved (6) Hemiparesis due to old cerebrovascular accident Code(s): I69.359 - HEMIPLGA FOLLOWING CEREBRAL INFARCTION AFFECTING UNSP SIDE Status: Chronic Comment: left hemiplegia with contracture in UE (7) h/o left nephrectomy Status: Chronic (8) PVD (peripheral vascular disease) Code(s): I73.9 - PERIPHERAL VASCULAR DISEASE, UNSPECIFIED Status: Chronic (9) Anemia Code(s): D64.9 - ANEMIA, UNSPECIFIED Status: Chronic Qualifiers: Anemia type: unspecified type Qualified Code(s): D64.9 - Anemia, unspecified (10) CAD (coronary artery disease) Code(s): I25.10 - ATHSCL HEART DISEASE OF [place] CORONARY ARTERY W/O ANG PCTRS Status: Chronic Qualifiers: Coronary Disease-Associated Artery/Lesion type: [place] artery [place] vs. transplanted heart: [place] heart Associated angina: with stable angina Qualified Code(s): I25.118 - Atherosclerotic heart disease of [place] coronary artery with other forms of angina pectoris (11) DM type 2 (diabetes mellitus, type 2) Status: Chronic Qualifiers: Diabetes mellitus intermediate insulin use: with call centre supervisor use Diabetes mellitus complication status: with kidney complications Diabetes mellitus complication detail: with chronic kidney disease Chronic kidney disease stage : stage 3 (moderate) Qualified Code(s): E11.22 - Type 2 diabetes mellitus with diabetic chronic kidney disease; N18.3 - Chronic kidney disease, stage 3 ( moderate); Z79.4 - natural gas basis trader (current) use of insulin (12) HLD (hyperlipidemia) Code(s): E78.5 - HYPERLIPIDEMIA, UNSPECIFIED Status: Chronic Qualifiers: Hyperlipidemia type: unspecified Qualified Code(s): E78.5 - Hyperlipidemia , unspecified (13) HTN (hypertension) Code(s): I10 - ESSENTIAL (PRIMARY) HYPERTENSION Status: Chronic (14) NSTEMI (non-ST elevated myocardial infarction) Code(s): I21.4 - NON-ST ELEVATION (NSTEMI) MYOCARDIAL INFARCTION Status: Resolved - Plan urology to talk to intervention radiologist for per cut nephrostomy -: creatinine is 5 -: on meropenem (urine cs reviewed) -: prognosis guarded -: will give updates to son Mr.Aubrey Kee [phone] * . Review of Systems - Medications/Allergies Allergies/Adverse Reactions: Allergies Allergy/AdvReac Type Severity Reaction Status Date / Time codeine Allergy Severe Short of Verified 10/09/15 22:41 Breath hydrocodone Allergy Emesis Verified 10/09/15 22:41 morphine Allergy Verified 10/09/15 22:41 promethazine HCl Allergy Emesis Verified 10/09/15 22:41 [From Phenergan] BLACK IBRAHIM SODA Allergy Mild ITCH Uncoded 10/18/14 14:28 Medications: Current Medications Acetaminophen (Tylenol) 650 mg PO Q4H PRN PRN Reason: Headache/Fever or Pain Last Admin: 03/03/18 20:24 Dose: 650 mg Acetaminophen (Tylenol) 650 mg [place] Q4H PRN PRN Reason: Headache/Fever or Pain Last Admin: 03/04/18 21:09 Dose: 650 mg Aspirin (Ecotrin) 325 mg PO DAILY [facility] Last Admin: 03/05/18 08:38 Dose: Not Given Bisacodyl (Dulcolax) 10 mg PO DAILYPRN PRN PRN Reason: Constipation Last Admin: 03/02/18 23:18 Dose: 10 mg Dextrose/Water (Dextrose 50%) 25 gm SLOW IVP PRN PRN PRN Reason: Hypoglycemia Glucagon (Glucagon) 1 mg IM PRN PRN PRN Reason: Hypoglycemia Dextrose/Water (D5w) 1,000 mls @ 0 mls/hr IV .Q0M PRN PRN Reason: Hypoglycemia Meropenem 500 mg/ Sodium (Chloride) 100 mls @ 200 mls/hr IVPB 0100 [facility] Last Admin: 03/05/18 00:55 Dose: 100 mls Sodium Bicarbonate 150 meq/ (Dextrose/Water) 1,150 mls @ 100 mls/hr IV .[id number] [facility] Last Admin: 03/05/18 01:23 Dose: 1,150 mls Insulin Human Lispro (Humalog) 0 units SC .MILD SLIDING SCALE PRN PRN Reason: Mild Correctional Scale Last Admin: 03/02/18 11:19 Dose: 2 unit Miscellaneous Medication (Pharmacy To Dose) 1 each IVPB PRN PRN PRN Reason: Pharmacy to dose Nicotine (Nicoderm Patch) 21 mg TD Q24HR [facility] Last Admin: 03/04/18 21:10 Dose: Not Given Sodium Bicarbonate (Bicarbonate, Sodium) 325 mg PO BID [facility] Last Admin: 03/05/18 08:38 Dose: Not Given Sodium Chloride (Flush - Normal Saline) 10 ml IVF Q12HR [facility] Last Admin: 03/05/18 08:39 Dose: Not Given Sodium Chloride (Flush - Normal Saline) 10 ml IVF PRN PRN PRN Reason: Saline Flush Last Admin: 03/04/18 21:10 Dose: 10 ml Tamsulosin HCl (Flomax) 0.4 mg PO DAILY [facility] Tamsulosin HCl (Flomax) 0.4 mg PO NOW [facility] Stop: 03/05/18 12:15
[2018-03-05] MEDS ORDERED: Acetaminophen 650 MG in Premix Bag 1 BAG IVPB PRN (12:03)
[2018-03-05 12:59] LABS: INR-International Normal Ratio 1.2; PTT 28.9 SEC (22.9-36.1); Prothrombin Time 15.5 SEC (12.0-14.7)
--- NOTE | 2018-03-05 13:26 | PRG ---
DATE OF SERVICE: 03/05/2018 SUBJECTIVE: This is a 62-year-old female being seen for acute kidney injury and acidosis. The patient complains of flank pain. PHYSICAL EXAMINATION: GENERAL: Patient is resting. VITAL SIGNS: Afebrile, pulse 77, breathing 16, and blood [id number]. GENERAL APPEARANCE AND MENTAL STATUS: Fair. HEAD/NECK: Normocephalic. Atraumatic. EYES: EOMI. No deformity. EARS: Clear. No ulcers. NOSE: Intact. No lesions. MOUTH: Clear. No discharge. THROAT: Clear. No exudate. LUNGS: Clear. No crackles. CARDIAC: S1, S2. No rub. ABDOMEN: Benign. BS+. GENITALIA/RECTUM: Prather absent. BACK/EXTREMITIES: Edema 0+ Ulcer- NEUROLOGICAL: Alert and motor intact. SKIN: Rash- Bruise- LABORATORY DATA: Hemoglobin 10.3, creatinine 5.0. ASSESSMENT AND RECOMMENDATIONS: 1. Acute kidney injury with chronic kidney disease due to hydronephrosis. 2. Hypertension, stable. 3. Anemia, stable. 4. Metabolic acidosis. Continue bicarbonate drip. 5. Hydronephrosis. Management per Urology and Radiology. MTDD
[2018-03-05] MEDS ORDERED: Furosemide 40 MG/4 ML VIAL ONE (18:46)
--- NOTE | 2018-03-05 18:57 | SPC ---
FLUOROSCOPICALLY GUIDED RIGHT PERCUTANEOUS NEPHROSTOMY CATHETER PLACEMENT: History: Obstructing right ureteral stone. FINDINGS: After obtaining informed consent, the patient was placed on the fluoroscopy table in prone position. Sterile technique, buffered local anesthesia, fluoroscopic guidance, and a right posterolateral appro ach were used to carefully advance a 22 gauge spinal needle to the dilated right renal collecting sys tem. A small amount of contrast was injected. A second approach, very close to the first, was used to gain access to a posterior renal tom. Accu-stick technique was then used to place an 8 Hungarian lock and loop catheter at the right renal pelvis. Cloudy urine was drained. Catheter was secured external ly with 0 Silk suture and left draining to gravity. Fluoro time: 9.6 minutes Patient tolerated the procedure well and was returned in improved condition. IMPRESSION: Technically successful right percutaneous nephrostomy catheter placement. POS: JACQUELINE
[2018-03-05] MEDS ORDERED: Furosemide 40 MG/4 ML VIAL SLOW IVP SCH (19:15)
[2018-03-05] MEDS: traMADol HCl 50 MG TAB PO PRN (20:28)
[2018-03-05] MEDS: Nicotine 21 MG PATCH TD SCH (20:42)
[2018-03-05] MEDS: Furosemide 100 MG in Sodium Chloride 0.9% 90 ML IVPB SCH (20:54)
[2018-03-06] MEDS: Acetaminophen 325 MG TAB PO PRN (00:39)
[2018-03-06 05:21] LABS: #Lymphocytes 0.6 thou/uL (1.20-3.40); #Monocytes 0.5 thou/uL (0.11-0.59); #Neutrophils 5.1 thou/uL (1.40-6.50); %Basophils 0.6 % (0.0-1.0); %Eosinophils 0.3 % (0.0-10.0); %Lymphocytes 9.8 % (21.0-51.0); %Monocytes 7.7 % (0.0-10.0); %Neutrophils 81.7 % (42.0-75.0); Hemoglobin 8.6 g/dL (12.0-16.0); Mean Corpuscular HGB CONC 34.8 g/dL (32.0-36.0); Mean Corpuscular Hemoglobin 32.7 pg (27.0-31.0); Mean Corpuscular Volume 93.9 fL (78.0-98.0); Mean Platelet Volume 10.2 fL (7.4-10.4); Platelet Count 88 thou/uL (130-400); RBC Distribution Width 11.9 % (11.5-14.5); Red Blood Cell (RBC) Count 2.62 mill/uL (4.20-5.40); White Blood Cell (WBC) Count 6.3 thou/uL (4.8-10.8)
[2018-03-06 05:28] LABS: Anion Gap 16 mmol/L (10-20); BUN (Urea Nitrogen) 57 mg/dL (9.8-20.1); Calc. Creatinine Clearance 18 mL/min (70-130); Calcium 8.1 mg/dL (7.8-10.44); Carbon Dioxide 18 mmol/L (22-29); Chloride 107 mmol/L (98-107); Estimated GFR-MDRD 12; Glucose 203 mg/dL (70-105); Sodium 138 mmol/L (136-145)
[2018-03-06 05:37] LABS: Potassium 2.9 mmol/L (3.5-5.1)
[2018-03-06] MEDS ORDERED: Potassium Chloride 20 MEQ in Premix Bag 1 BAG IVPB SCH (07:00)
[2018-03-06] MEDS ORDERED: Ciprofloxacin Lactate/D5W 200 MG in Premix Bag 1 BAG IVPB SCH (10:00)
--- NOTE | 2018-03-06 11:50 | PRG ---
DATE OF SERVICE: 03/06/2018 SUBJECTIVE: A 62-year-old female being seen for acute kidney injury. Overnight events noted. The p atient is nonverbal. OBJECTIVE: VITAL SIGNS: The patient is afebrile, pulse 71, breathing at 18, blood pressure 120/73, on nonrebrea ther. GENERAL APPEARANCE AND MENTAL STATUS: Fair. HEAD/NECK: Normocephalic. Atraumatic. EYES: EOMI. No deformity. EARS: Clear. No ulcers. NOSE: Intact. No lesions. MOUTH: Clear. No discharge. THROAT: Clear. No exudate. LUNGS: Clear. No crackles. CARDIAC: S1, S2. No rub. ABDOMEN: Benign. BS+. GENITALIA/RECTUM: Prather absent. BACK/EXTREMITIES: Edema 0+ Ulcer- NEUROLOGICAL: Alert and motor intact. SKIN: Rash- Bruise- LYMPHATICS: Edema- Ulcer- LABORATORY: Hemoglobin 8.6, potassium 2.9, creatinine 3.7. ASSESSMENT AND RECOMMENDATIONS: 1. Acute kidney injury due to hydronephrosis and unilateral kidney, improved. 2. Hypertension, stable. 3. Anemia, stable. 4. Hypokalemia. Agree with potassium replacement. 5. Metabolic acidosis, improved. No indication for dialysis at this time. Prognosis is poor.
--- NOTE | 2018-03-06 14:04 | PDOC.PN ---
- Subjective Encounter Start Date: 03/06/18 Encounter Start Time: 12:00 Subjective: awake, responds to few questions, is sob but better than yesterday - Objective Resuscitation Status: Resuscitation Status DNR:Do Not Resuscitate MAR Reviewed: Yes Vital Signs & Weight: Vital Signs (12 hours) Temp Pulse Resp BP Pulse Ox 03/06/18 11:37 96.6 F L 89 18 120/77 90 L 03/06/18 08:00 98.2 F 101 H 18 99 03/06/18 07:46 98.2 F 101 H 18 120/73 93 L 03/06/18 04:46 98.9 F 94 18 128/74 96 Weight Weight 151 lb 10.848 oz Most Recent Monitor Data Heart Rate from ECG 104 NIBP 125/56 NIBP BP-Mean 67 Respiration from ECG 19 SpO2 95 I&O: 03/05/18 03/06/18 03/07/18 06:59 06:59 06:59 Intake Total 1807 1604 Output Total 225 1750 Balance 1582 -146 Result Diagrams: 03/06/18 04:10 03/06/18 04:10 Additional Labs: Accuchecks 03/06/18 03/05/18 11:36 20:05 POC Glucose 197 H 230 H Phys Exam - Physical Examination HEENT: PERRLA, sclera anicteric Neck: supple jvd+ Respiratory: no wheezing rales+ Cardiovascular: RRR, no significant murmur Gastrointestinal: soft, positive bowel sounds Musculoskeletal: pulses present, edema present Neurological: non-focal chronic left hemiplegia with UE contracture Dx/Plan (1) ALEISHA (acute kidney injury) Code(s): N17.9 - ACUTE KIDNEY FAILURE, UNSPECIFIED Status: Acute Comment: s/ p right nephrostomy tube 03/05/18, has right UPJ obstruction (2) Urinary tract infection Status: Acute Qualifiers: Urinary tract infection type: acute cystitis Hematuria presence: without hematuria Qualified Code(s): N30.00 - Acute cystitis without hematuria (3) Acute encephalopathy Code(s): G93.40 - ENCEPHALOPATHY, UNSPECIFIED Status: Acute (4) Sepsis Code(s): A41.9 - SEPSIS, UNSPECIFIED ORGANISM Status: Acute Qualifiers: Sepsis type: sepsis due to unspecified organism Qualified Code(s): A41.9 - Sepsis, unspecified organism (5) Dehydration, moderate Code(s): E86.0 - DEHYDRATION Status: Resolved (6) Hemiparesis due to old cerebrovascular accident Code(s): I69.359 - HEMIPLGA FOLLOWING CEREBRAL INFARCTION AFFECTING UNSP SIDE Status: Chronic Comment: left hemiplegia with contracture in UE (7) h/o left nephrectomy Status: Chronic (8) PVD (peripheral vascular disease) Code(s): I73.9 - PERIPHERAL VASCULAR DISEASE, UNSPECIFIED Status: Chronic (9) Anemia Code(s): D64.9 - ANEMIA, UNSPECIFIED Status: Chronic Qualifiers: Anemia type: unspecified type Qualified Code(s): D64.9 - Anemia, unspecified (10) CAD (coronary artery disease) Code(s): I25.10 - ATHSCL HEART DISEASE OF [place] CORONARY ARTERY W/O ANG PCTRS Status: Chronic Qualifiers: Coronary Disease-Associated Artery/Lesion type: [place] artery [place] vs. transplanted heart: [place] heart Associated angina: with stable angina Qualified Code(s): I25.118 - Atherosclerotic heart disease of [place] coronary artery with other forms of angina pectoris (11) DM type 2 (diabetes mellitus, type 2) Status: Chronic Qualifiers: Diabetes mellitus rodent exterminator insulin use: with rodent exterminator use Diabetes mellitus complication status: with kidney complications Diabetes mellitus complication detail: with chronic kidney disease Chronic kidney disease stage : stage 3 (moderate) Qualified Code(s): E11.22 - Type 2 diabetes mellitus with diabetic chronic kidney disease; N18.3 - Chronic kidney disease, stage 3 ( moderate); Z79.4 - longterm (current) use of insulin (12) HLD (hyperlipidemia) Code(s): E78.5 - HYPERLIPIDEMIA, UNSPECIFIED Status: Chronic Qualifiers: Hyperlipidemia type: unspecified Qualified Code(s): E78.5 - Hyperlipidemia , unspecified (13) HTN (hypertension) Code(s): I10 - ESSENTIAL (PRIMARY) HYPERTENSION Status: Chronic (14) NSTEMI (non-ST elevated myocardial infarction) Code(s): I21.4 - NON-ST ELEVATION (NSTEMI) MYOCARDIAL INFARCTION Status: Resolved (15) Anasarca associated with disorder of kidney Code(s): N04.9 - NEPHROTIC SYNDROME WITH UNSPECIFIED MORPHOLOGIC CHANGES Status: Acute - Plan is on lasix drip, cipro for uti/pyelonephritis with obstr -: urine output last 24hrs is 1750mls -: still has lot of edema, prognosis is guarded -: may titrate her down to ventimask from non rebreather -: oral diet as tolerated, watch for h/h, creatinine is better at 3.7 * . Review of Systems - Medications/Allergies Allergies/Adverse Reactions: Allergies Allergy/AdvReac Type Severity Reaction Status Date / Time codeine Allergy Severe Short of Verified 10/09/15 22:41 Breath hydrocodone Allergy Emesis Verified 10/09/15 22:41 morphine Allergy Verified 10/09/15 22:41 promethazine HCl Allergy Emesis Verified 10/09/15 22:41 [From Phenergan] BLACK IBRAHIM SODA Allergy Mild ITCH Uncoded 10/18/14 14:28 Medications: Current Medications Acetaminophen (Tylenol) 650 mg PO Q4H PRN PRN Reason: Headache/Fever or Pain Last Admin: 03/06/18 00:39 Dose: 650 mg Acetaminophen (Tylenol) 650 mg [place] Q4H PRN PRN Reason: Headache/Fever or Pain Last Admin: 03/04/18 21:09 Dose: 650 mg Aspirin (Ecotrin) 325 mg PO DAILY [facility] Last Admin: 03/05/18 08:38 Dose: Not Given Bisacodyl (Dulcolax) 10 mg PO DAILYPRN PRN PRN Reason: Constipation Last Admin: 03/02/18 23:18 Dose: 10 mg Dextrose/Water (Dextrose 50%) 25 gm SLOW IVP PRN PRN PRN Reason: Hypoglycemia Glucagon (Glucagon) 1 mg IM PRN PRN PRN Reason: Hypoglycemia Dextrose/Water (D5w) 1,000 mls @ 0 mls/hr IV .Q0M PRN PRN Reason: Hypoglycemia Furosemide 100 mg/ Sodium (Chloride) 100 mls @ 5 mls/hr IVPB INF [facility] Last Admin: 03/05/18 20:54 Dose: 100 mls Ciprofloxacin/Dextrose 200 mg/ (Device) 100 mls @ 100 mls/hr IVPB Q12HR [facility] Insulin Human Lispro (Humalog) 0 units SC .MILD SLIDING SCALE PRN PRN Reason: Mild Correctional Scale Last Admin: 03/02/18 11:19 Dose: 2 unit Miscellaneous Medication (Pharmacy To Dose) 1 each IVPB PRN PRN PRN Reason: Pharmacy to dose Nicotine (Nicoderm Patch) 21 mg TD Q24HR [facility] Last Admin: 03/05/18 20:42 Dose: Not Given Sodium Bicarbonate (Bicarbonate, Sodium) 325 mg PO BID [facility] Last Admin: 03/05/18 20:42 Dose: Not Given Sodium Chloride (Flush - Normal Saline) 10 ml IVF Q12HR [facility] Last Admin: 03/05/18 20:42 Dose: 10 ml Sodium Chloride (Flush - Normal Saline) 10 ml IVF PRN PRN PRN Reason: Saline Flush Last Admin: 03/04/18 21:10 Dose: 10 ml Tamsulosin HCl (Flomax) 0.4 mg PO DAILY [facility] Tramadol HCl (Ultram) 50 mg PO Q6H PRN PRN Reason: Moderate Pain (4-6) Last Admin: 03/05/18 20:28 Dose: 50 mg
[2018-03-06] MEDS: Tamsulosin HCl 0.4 MG CAP PO SCH (14:05)
[2018-03-06] MEDS: Sodium Bicarbonate Tab 325 MG TAB PO SCH ×2 (14:16→20:49)
[2018-03-06] MEDS: Aspirin 325 mg Enteric Coated Tablet PO SCH (14:16)
[2018-03-06] MEDS: Furosemide 100 MG in Sodium Chloride 0.9% 90 ML IVPB SCH (16:04)
--- NOTE | 2018-03-06 18:59 | PRG ---
DATE OF SERVICE: 03/06/2018 SUBJECTIVE: Ms. Jerez is improving. She had a percutaneous nephrostomy placed yesterday evening. Her creatinine improved to 3.71. Urine output has improved. The patient is more responsive this mor ariel. She responds to yes/no questions. No other complaints. OBJECTIVE: VITAL SIGNS: Temperature is 98.2, pulse 101, respirations 18, oxygen saturation 93% on room air, and blood pressure 120/73. GENERAL: She is awake, alert, no apparent distress. CARDIOVASCULAR: Tachycardic but regular. PULMONARY: Breathing unlabored. ABDOMEN: Soft, nontender/nondistended, right percutaneous nephrostomy in place draining blood tinged urine. EXTREMITIES: Bilateral AKAs, upper extremities without edema. LABORATORY DATA: White blood cell count 6.3, hemoglobin 8.6, hematocrit 24.6, platelets 88. Sodium 138, potassium 2.9, chloride 107, bicarbonate 18, BUN 57, creatinine 3.71. ASSESSMENT: A 62-year-old female with solitary kidney, sepsis secondary to urinary tract infection, acute kidney injury, ureteral calculus postop day #1 status post right percutaneous nephrostomy place ment. PLAN: The patient has improved overnight and to this morning. Nephrostomy is draining. Continue br oad-spectrum antibiotics and narrow as appropriate. The patient will need a complete course of this and recover from her current status prior to definitive management of this stone was to be performed at a later date. Continue nephrostomy drainage until then.
[2018-03-06] MEDS: Ciprofloxacin Lactate/D5W 200 MG in Premix Bag 1 BAG IVPB SCH (20:48)
[2018-03-06] MEDS: Nicotine 21 MG PATCH TD SCH (20:49)
[2018-03-06] MEDS: traMADol HCl 50 MG TAB PO PRN (20:49)
[2018-03-07 04:43] LABS: Anion Gap 16 mmol/L (10-20); BUN (Urea Nitrogen) 65 mg/dL (9.8-20.1); Calc. Creatinine Clearance 19 mL/min (70-130); Calcium 8.3 mg/dL (7.8-10.44); Carbon Dioxide 18 mmol/L (22-29); Chloride 109 mmol/L (98-107); Estimated GFR-MDRD 13; Glucose 143 mg/dL (70-105); Potassium 3.3 mmol/L (3.5-5.1); Sodium 140 mmol/L (136-145)
[2018-03-07 04:57] LABS: Hemoglobin 8.5 g/dL (12.0-16.0); Mean Corpuscular HGB CONC 34.8 g/dL (32.0-36.0); Mean Corpuscular Volume 94.8 fL (78.0-98.0); Mean Platelet Volume 9.9 fL (7.4-10.4); Platelet Count 137 thou/uL (130-400); Red Blood Cell (RBC) Count 2.59 mill/uL (4.20-5.40); White Blood Cell (WBC) Count 8.1 thou/uL (4.8-10.8)
[2018-03-07 04:58] LABS: Band 2 % (5-11); Hypochromia SLIGHT = 6-15 cells (100X) (0-5/hpf); Lymphocytes 8 % (21-51); MDiff Complete? YES; Monocytes 8 % (0-10); Neutrophil 82 % (42-75); PLT Morphology Comment Appears Adequate
[2018-03-07] MEDS: Aspirin 325 mg Enteric Coated Tablet PO SCH (09:07)
[2018-03-07] MEDS: Sodium Bicarbonate Tab 325 MG TAB PO SCH ×2 (09:07→20:43)
[2018-03-07] MEDS: Tamsulosin HCl 0.4 MG CAP PO SCH (09:07)
[2018-03-07] MEDS: Ciprofloxacin Lactate/D5W 200 MG in Premix Bag 1 BAG IVPB SCH (10:20)
[2018-03-07] MEDS: HumaLOG 300 UNITS/3 ML VIAL SC PRN (13:45)
[2018-03-07] MEDS: Sodium Chloride 0.9% 1,000 ML IV SCH ×2 (14:34→20:44)
--- NOTE | 2018-03-07 15:12 | PDOC.PN ---
- Subjective Encounter Start Date: 03/07/18 Encounter Start Time: 09:50 Subjective: awakens easily, wants to eat -: is back on non rebreather now - Objective Resuscitation Status: Resuscitation Status DNR:Do Not Resuscitate MAR Reviewed: Yes Vital Signs & Weight: Vital Signs (12 hours) Temp Pulse Resp BP Pulse Ox 03/07/18 12:00 97.8 F 88 18 127/71 99 03/07/18 08:00 98.3 F 85 18 147/79 H 95 03/07/18 04:00 98.0 F 99 20 113/71 95 Weight Weight 151 lb 10.848 oz Most Recent Monitor Data Heart Rate from ECG 104 NIBP 125/56 NIBP BP-Mean 67 Respiration from ECG 19 SpO2 95 I&O: 03/06/18 03/07/18 03/08/18 06:59 06:59 06:59 Intake Total 1604 203 Output Total 1750 400 Balance -146 -197 Result Diagrams: 03/07/18 03:22 03/07/18 03:22 Additional Labs: Accuchecks 03/07/18 03/07/18 03/06/18 11:46 05:45 21:08 POC Glucose 183 H 153 H 174 H 03/06/18 16:38 POC Glucose 181 H Phys Exam - Physical Examination anasarca HEENT: moist MMs, sclera anicteric Neck: no JVD, supple Respiratory: no wheezing, no rales Cardiovascular: RRR, no significant murmur Gastrointestinal: soft, non-tender, positive bowel sounds nephrostomy tube has debris in it with not much urine Musculoskeletal: pulses present, edema present Neurological: non-focal, moves all 4 limbs aka and bka Dx/Plan (1) ALEISHA (acute kidney injury) Code(s): N17.9 - ACUTE KIDNEY FAILURE, UNSPECIFIED Status: Acute Comment: s/ p right nephrostomy tube 03/05/18, has right UPJ obstruction (2) Urinary tract infection Status: Acute Qualifiers: Urinary tract infection type: acute cystitis Hematuria presence: without hematuria Qualified Code(s): N30.00 - Acute cystitis without hematuria (3) Acute encephalopathy Code(s): G93.40 - ENCEPHALOPATHY, UNSPECIFIED Status: Acute (4) Sepsis Code(s): A41.9 - SEPSIS, UNSPECIFIED ORGANISM Status: Acute Qualifiers: Sepsis type: sepsis due to unspecified organism Qualified Code(s): A41.9 - Sepsis, unspecified organism (5) Dehydration, moderate Code(s): E86.0 - DEHYDRATION Status: Resolved (6) Hemiparesis due to old cerebrovascular accident Code(s): I69.359 - HEMIPLGA FOLLOWING CEREBRAL INFARCTION AFFECTING UNSP SIDE Status: Chronic Comment: left hemiplegia with contracture in UE (7) h/o left nephrectomy Status: Chronic (8) PVD (peripheral vascular disease) Code(s): I73.9 - PERIPHERAL VASCULAR DISEASE, UNSPECIFIED Status: Chronic (9) Anemia Code(s): D64.9 - ANEMIA, UNSPECIFIED Status: Chronic Qualifiers: Anemia type: unspecified type Qualified Code(s): D64.9 - Anemia, unspecified (10) CAD (coronary artery disease) Code(s): I25.10 - ATHSCL HEART DISEASE OF [place] CORONARY ARTERY W/O ANG PCTRS Status: Chronic Qualifiers: Coronary Disease-Associated Artery/Lesion type: [place] artery [place] vs. transplanted heart: [place] heart Associated angina: with stable angina Qualified Code(s): I25.118 - Atherosclerotic heart disease of [place] coronary artery with other forms of angina pectoris (11) DM type 2 (diabetes mellitus, type 2) Status: Chronic Qualifiers: Diabetes mellitus penitentiary insulin use: with penitentiary use Diabetes mellitus complication status: with kidney complications Diabetes mellitus complication detail: with chronic kidney disease Chronic kidney disease stage : stage 3 (moderate) Qualified Code(s): E11.22 - Type 2 diabetes mellitus with diabetic chronic kidney disease; N18.3 - Chronic kidney disease, stage 3 ( moderate); Z79.4 - ocean transportation intermediary (current) use of insulin (12) HLD (hyperlipidemia) Code(s): E78.5 - HYPERLIPIDEMIA, UNSPECIFIED Status: Chronic Qualifiers: Hyperlipidemia type: unspecified Qualified Code(s): E78.5 - Hyperlipidemia , unspecified (13) HTN (hypertension) Code(s): I10 - ESSENTIAL (PRIMARY) HYPERTENSION Status: Chronic Qualifiers: Hypertension type: essential hypertension Qualified Code(s): I10 - Essential (primary) hypertension (14) NSTEMI (non-ST elevated myocardial infarction) Code(s): I21.4 - NON-ST ELEVATION (NSTEMI) MYOCARDIAL INFARCTION Status: Resolved (15) Anasarca associated with disorder of kidney Code(s): N04.9 - NEPHROTIC SYNDROME WITH UNSPECIFIED MORPHOLOGIC CHANGES Status: Acute - Plan dc lasix drip, likely will need flushing of her nephrostomy tube -: hardly 400mls of urine output last 24hrs -: gentle iv hydration, cipro for post obstr uti -: encourage po intake -: prognosis guarded, is oriented and follows verbal stimuli * . Review of Systems - Medications/Allergies Allergies/Adverse Reactions: Allergies Allergy/AdvReac Type Severity Reaction Status Date / Time codeine Allergy Severe Short of Verified 10/09/15 22:41 Breath hydrocodone Allergy Emesis Verified 10/09/15 22:41 morphine Allergy Verified 10/09/15 22:41 promethazine HCl Allergy Emesis Verified 10/09/15 22:41 [From Phenergan] BLACK IBRAHIM SODA Allergy Mild ITCH Uncoded 10/18/14 14:28 Medications: Current Medications Acetaminophen (Tylenol) 650 mg PO Q4H PRN PRN Reason: Headache/Fever or Pain Last Admin: 03/06/18 00:39 Dose: 650 mg Acetaminophen (Tylenol) 650 mg [place] Q4H PRN PRN Reason: Headache/Fever or Pain Last Admin: 03/04/18 21:09 Dose: 650 mg Aspirin (Ecotrin) 325 mg PO DAILY [facility] Last Admin: 03/07/18 09:07 Dose: 325 mg Bisacodyl (Dulcolax) 10 mg PO DAILYPRN PRN PRN Reason: Constipation Last Admin: 03/02/18 23:18 Dose: 10 mg Dextrose/Water (Dextrose 50%) 25 gm SLOW IVP PRN PRN PRN Reason: Hypoglycemia Glucagon (Glucagon) 1 mg IM PRN PRN PRN Reason: Hypoglycemia Dextrose/Water (D5w) 1,000 mls @ 0 mls/hr IV .Q0M PRN PRN Reason: Hypoglycemia Ciprofloxacin/Dextrose 200 mg/ (Device) 100 mls @ 100 mls/hr IVPB 1000 [facility] Sodium Chloride (Normal Saline 0.9%) 1,000 mls @ 50 mls/hr IV .Q20H [facility] Last Admin: 03/07/18 14:34 Dose: 1,000 mls Insulin Human Lispro (Humalog) 0 units SC .MILD SLIDING SCALE PRN PRN Reason: Mild Correctional Scale Last Admin: 03/07/18 13:45 Dose: 2 unit Miscellaneous Medication (Pharmacy To Dose) 1 each IVPB PRN PRN PRN Reason: Pharmacy to dose Nicotine (Nicoderm Patch) 21 mg TD Q24HR [facility] Last Admin: 03/06/18 20:49 Dose: Not Given Sodium Bicarbonate (Bicarbonate, Sodium) 325 mg PO BID [facility] Last Admin: 03/07/18 09:07 Dose: 325 mg Sodium Chloride (Flush - Normal Saline) 10 ml IVF Q12HR [facility] Last Admin: 03/07/18 10:20 Dose: 10 ml Sodium Chloride (Flush - Normal Saline) 10 ml IVF PRN PRN PRN Reason: Saline Flush Last Admin: 03/04/18 21:10 Dose: 10 ml Tamsulosin HCl (Flomax) 0.4 mg PO DAILY [facility] Last Admin: 03/07/18 09:07 Dose: 0.4 mg Tramadol HCl (Ultram) 50 mg PO Q6H PRN PRN Reason: Moderate Pain (4-6) Last Admin: 03/06/18 20:49 Dose: 50 mg
[2018-03-07] MEDS ORDERED: Furosemide 100 MG/10 ML VIAL SLOW IVP SCH (16:45)
[2018-03-07] MEDS: Nicotine 21 MG PATCH TD SCH (20:43)
[2018-03-07] MEDS: traMADol HCl 50 MG TAB PO PRN (20:44)
[2018-03-08 04:48] LABS: Anion Gap 17 mmol/L (10-20); BUN (Urea Nitrogen) 66 mg/dL (9.8-20.1); Calc. Creatinine Clearance 24 mL/min (70-130); Calcium 8.2 mg/dL (7.8-10.44); Carbon Dioxide 19 mmol/L (22-29); Chloride 109 mmol/L (98-107); Estimated GFR-MDRD 18; Glucose 118 mg/dL (70-105); Potassium 3.1 mmol/L (3.5-5.1); Sodium 142 mmol/L (136-145)
[2018-03-08 05:14] LABS: Band 22 % (5-11); Hemoglobin 8.3 g/dL (12.0-16.0); Lymphocytes 10 % (21-51); MDiff Complete? YES; Mean Corpuscular HGB CONC 34.3 g/dL (32.0-36.0); Mean Corpuscular Hemoglobin 32.6 pg (27.0-31.0); Mean Corpuscular Volume 95.1 fL (78.0-98.0); Mean Platelet Volume 9.6 fL (7.4-10.4); Metamyelocyte 2 % (0-0); Monocytes 3 % (0-10); Neutrophil 63 % (42-75); PLT Morphology Comment Appears Adequate; Platelet Count 166 thou/uL (130-400); Red Blood Cell (RBC) Count 2.54 mill/uL (4.20-5.40); White Blood Cell (WBC) Count 7.7 thou/uL (4.8-10.8)
--- NOTE | 2018-03-08 07:05 | PRG ---
DATE OF SERVICE: 03/07/2018 SUBJECTIVE: A 62-year-old female being seen for acute kidney injury. The patient denies any complaints. OBJECTIVE: GENERAL: The patient is resting. VITAL SIGNS: Afebrile, pulse 89, breathing at 16, blood pressure 127/71. GENERAL APPEARANCE AND MENTAL STATUS: Fair. HEAD/NECK: Normocephalic. Atraumatic. EYES: EOMI. No deformity. EARS: Clear. No ulcers. NOSE: Intact. No lesions. MOUTH: Clear. No discharge. THROAT: Clear. No exudate. LUNGS: Clear. No crackles. CARDIAC: S1, S2. No rub. ABDOMEN: Benign. BS+. GENITALIA/RECTUM: Prather absent. BACK/EXTREMITIES: Edema 0+ Ulcer- NEUROLOGICAL: Alert and motor intact. SKIN: Rash- Bruise- LYMPHATICS: Edema- Ulcer- LABORATORY DATA: Show hemoglobin 8.5. Creatinine 3.4. ASSESSMENT AND RECOMMENDATION: 1. Chronic kidney disease, stage 5, stable. 2. Hypertension, stable. 3. Anemia, stable. 4. Metabolic acidosis, stable. 5. Hypokalemia. Recommend 40 mEq of potassium. No indication for dialysis today. MTDD
[2018-03-08] MEDS: Tamsulosin HCl 0.4 MG CAP PO SCH (07:51)
[2018-03-08] MEDS: Aspirin 325 mg Enteric Coated Tablet PO SCH (07:52)
[2018-03-08] MEDS: Sodium Bicarbonate Tab 325 MG TAB PO SCH ×2 (07:52→21:03)
[2018-03-08] MEDS: Sodium Chloride 0.9% 1,000 ML IV SCH (07:55)
[2018-03-08] MEDS: Ciprofloxacin Lactate/D5W 200 MG in Premix Bag 1 BAG IVPB SCH (09:18)
[2018-03-08] MEDS ORDERED: Furosemide 20 MG/2 ML VIAL SLOW IVP SCH ×2 (10:30→18:00)
[2018-03-08] MEDS ORDERED: Potassium Chloride 20 MEQ TAB PO SCH (11:15)
--- NOTE | 2018-03-08 12:18 | PRG ---
DATE OF SERVICE: 03/08/2018 SUBJECTIVE: This is a 62-year-old female being seen for acute kidney injury. The patient denies any nausea, vomiting, or chest pain. PHYSICAL EXAMINATION: GENERAL: Patient is awake, alert. VITAL SIGNS: Afebrile, pulse 87, breathing 16, blood pressure 139/74. OBJECTIVE: See above. Awake, alert, in no acute distress. GENERAL APPEARANCE AND MENTAL STATUS: Fair. HEAD/NECK: Normocephalic. Atraumatic. EYES: EOMI. No deformity. EARS: Clear. No ulcers. NOSE: Intact. No lesions. MOUTH: Clear. No discharge. THROAT: Clear. No exudate. LUNGS: Clear. No crackles. CARDIAC: S1, S2. No rub. ABDOMEN: Benign. BS+. GENITALIA/RECTUM: Prather absent. BACK/EXTREMITIES: Edema 0+ Ulcer- NEUROLOGICAL: Alert and motor intact. SKIN: Rash- Bruise- LYMPHATICS: Edema- Ulcer- LABORATORY: Hemoglobin 8.3, potassium 3.1. ASSESSMENT AND RECOMMENDATIONS: 1. Stage 4 chronic kidney disease, stable. 2. Acute kidney injury, improving. 3. Hydronephrosis. Management per Urology. 4. Acute tubular necrosis due to hydronephrosis. 5. Anemia, stable. 6. Hypokalemia. Recommend potassium replacement.
[2018-03-08] MEDS: traMADol HCl 50 MG TAB PO PRN ×2 (15:52→22:22)
[2018-03-08 18:22] LABS: Anion Gap 17 mmol/L (10-20); BUN (Urea Nitrogen) 62 mg/dL (9.8-20.1); Calc. Creatinine Clearance 28 mL/min (70-130); Calcium 8.1 mg/dL (7.8-10.44); Carbon Dioxide 18 mmol/L (22-29); Chloride 107 mmol/L (98-107); Estimated GFR-MDRD 21; Glucose 141 mg/dL (70-105); Potassium 3.4 mmol/L (3.5-5.1); Sodium 139 mmol/L (136-145)
--- NOTE | 2018-03-08 19:11 | PDOC.PN ---
- Subjective Encounter Start Date: 03/08/18 Encounter Start Time: 07:30 Subjective: awake and responds to verbal questions -: is more talkative now -: wants to eat and prefers nasal canula (claustrophobic to wear mask) - Objective Resuscitation Status: Resuscitation Status DNR:Do Not Resuscitate MAR Reviewed: Yes Vital Signs & Weight: Vital Signs (12 hours) Temp Pulse Resp BP BP Pulse Ox 03/08/18 19:08 83 22 H 93 L 03/08/18 19:05 124/74 03/08/18 18:20 113/54 L 03/08/18 16:00 97.7 F 84 16 113/52 L 85 L 03/08/18 11:00 97.7 F 78 16 129/75 86 L 03/08/18 08:00 90 L 03/08/18 07:58 97.5 F L 87 18 139/75 86 L 03/08/18 07:43 18 87 L Weight Weight 151 lb 10.848 oz Most Recent Monitor Data Heart Rate from ECG 104 NIBP 125/56 NIBP BP-Mean 67 Respiration from ECG 19 SpO2 95 I&O: 03/07/18 03/08/18 03/09/18 06:59 06:59 06:59 Intake Total 203 852 800 Output Total 400 890 550 Balance -197 -38 250 Result Diagrams: 03/08/18 04:04 03/08/18 17:54 Additional Labs: Accuchecks 03/08/18 03/08/18 03/07/18 16:50 11:33 19:38 POC Glucose 155 H 152 H 125 H Phys Exam - Physical Examination HEENT: PERRLA, sclera anicteric dry mucosa Neck: no JVD, supple Respiratory: no wheezing, no rales Cardiovascular: RRR, no significant murmur Gastrointestinal: soft, non-tender, positive bowel sounds Musculoskeletal: pulses present, edema present aka and bka Neurological: non-focal, moves all 4 limbs Dx/Plan (1) ALEISHA (acute kidney injury) Code(s): N17.9 - ACUTE KIDNEY FAILURE, UNSPECIFIED Status: Acute Comment: s/ p right nephrostomy tube 03/05/18, has right UPJ obstruction (2) Urinary tract infection Status: Acute Qualifiers: Urinary tract infection type: acute cystitis Hematuria presence: without hematuria Qualified Code(s): N30.00 - Acute cystitis without hematuria (3) Acute encephalopathy Code(s): G93.40 - ENCEPHALOPATHY, UNSPECIFIED Status: Acute (4) Sepsis Code(s): A41.9 - SEPSIS, UNSPECIFIED ORGANISM Status: Acute Qualifiers: Sepsis type: sepsis due to unspecified organism Qualified Code(s): A41.9 - Sepsis, unspecified organism (5) Dehydration, moderate Code(s): E86.0 - DEHYDRATION Status: Resolved (6) Hemiparesis due to old cerebrovascular accident Code(s): I69.359 - HEMIPLGA FOLLOWING CEREBRAL INFARCTION AFFECTING UNSP SIDE Status: Chronic Comment: left hemiplegia with contracture in UE (7) h/o left nephrectomy Status: Chronic (8) PVD (peripheral vascular disease) Code(s): I73.9 - PERIPHERAL VASCULAR DISEASE, UNSPECIFIED Status: Chronic (9) Anemia Code(s): D64.9 - ANEMIA, UNSPECIFIED Status: Chronic Qualifiers: Anemia type: unspecified type Qualified Code(s): D64.9 - Anemia, unspecified (10) CAD (coronary artery disease) Code(s): I25.10 - ATHSCL HEART DISEASE OF [place] CORONARY ARTERY W/O ANG PCTRS Status: Chronic Qualifiers: Coronary Disease-Associated Artery/Lesion type: [place] artery [place] vs. transplanted heart: [place] heart Associated angina: with stable angina Qualified Code(s): I25.118 - Atherosclerotic heart disease of [place] coronary artery with other forms of angina pectoris (11) DM type 2 (diabetes mellitus, type 2) Status: Chronic Qualifiers: Diabetes mellitus exterminator insulin use: with exterminator use Diabetes mellitus complication status: with kidney complications Diabetes mellitus complication detail: with chronic kidney disease Chronic kidney disease stage : stage 3 (moderate) Qualified Code(s): E11.22 - Type 2 diabetes mellitus with diabetic chronic kidney disease; N18.3 - Chronic kidney disease, stage 3 ( moderate); Z79.4 - assisted (current) use of insulin (12) HLD (hyperlipidemia) Code(s): E78.5 - HYPERLIPIDEMIA, UNSPECIFIED Status: Chronic Qualifiers: Hyperlipidemia type: unspecified Qualified Code(s): E78.5 - Hyperlipidemia , unspecified (13) HTN (hypertension) Code(s): I10 - ESSENTIAL (PRIMARY) HYPERTENSION Status: Chronic Qualifiers: Hypertension type: essential hypertension Qualified Code(s): I10 - Essential (primary) hypertension (14) NSTEMI (non-ST elevated myocardial infarction) Code(s): I21.4 - NON-ST ELEVATION (NSTEMI) MYOCARDIAL INFARCTION Status: Resolved (15) Anasarca associated with disorder of kidney Code(s): N04.9 - NEPHROTIC SYNDROME WITH UNSPECIFIED MORPHOLOGIC CHANGES Status: Acute - Plan lasix, accurate I/O including nephrostomy output per shift/24hrs -: is on cipro, will add nebs, taper oxygen for spo2 of around 85% -: to sit up in chair which also helps with oxygenation(takes shallow breaths) -: anasarca is slowly receding, total output of 900ml (550ml from nephrostomy) -: prognosis guarded, oral diet as tolerated * . Review of Systems - Medications/Allergies Allergies/Adverse Reactions: Allergies Allergy/AdvReac Type Severity Reaction Status Date / Time codeine Allergy Severe Short of Verified 10/09/15 22:41 Breath hydrocodone Allergy Emesis Verified 10/09/15 22:41 morphine Allergy Verified 10/09/15 22:41 promethazine HCl Allergy Emesis Verified 10/09/15 22:41 [From Phenergan] BLACK IBRAHIM SODA Allergy Mild ITCH Uncoded 10/18/14 14:28 Medications: Current Medications Acetaminophen (Tylenol) 650 mg PO Q4H PRN PRN Reason: Headache/Fever or Pain Last Admin: 03/06/18 00:39 Dose: 650 mg Acetaminophen (Tylenol) 650 mg [place] Q4H PRN PRN Reason: Headache/Fever or Pain Last Admin: 03/04/18 21:09 Dose: 650 mg Albuterol/Ipratropium (Duoneb) 3 ml NEB [id number] [facility] Last Admin: 03/08/18 19:08 Dose: 3 ml Aspirin (Ecotrin) 325 mg PO DAILY [facility] Last Admin: 03/08/18 07:52 Dose: 325 mg Bisacodyl (Dulcolax) 10 mg PO DAILYPRN PRN PRN Reason: Constipation Last Admin: 03/02/18 23:18 Dose: 10 mg Dextrose/Water (Dextrose 50%) 25 gm SLOW IVP PRN PRN PRN Reason: Hypoglycemia Furosemide (Lasix) 40 mg SLOW IVP 0600,1400 [facility] Glucagon (Glucagon) 1 mg IM PRN PRN PRN Reason: Hypoglycemia Dextrose/Water (D5w) 1,000 mls @ 0 mls/hr IV .Q0M PRN PRN Reason: Hypoglycemia Ciprofloxacin/Dextrose 200 mg/ (Device) 100 mls @ 100 mls/hr IVPB 1000 [facility] Last Admin: 03/08/18 09:18 Dose: 100 mls Lactated Ringer's (Lactated Ringer's) 1,000 mls @ 75 mls/hr IV .[id number] [facility] Insulin Human Lispro (Humalog) 0 units [place] .MILD SLIDING SCALE PRN PRN Reason: Mild Correctional Scale Last Admin: 03/07/18 13:45 Dose: 2 unit Miscellaneous Medication (Pharmacy To Dose) 1 each IVPB PRN PRN PRN Reason: Pharmacy to dose Nicotine (Nicoderm Patch) 21 mg TD Q24HR [facility] Last Admin: 03/07/18 20:43 Dose: Not Given Sodium Bicarbonate (Bicarbonate, Sodium) 325 mg PO BID [facility] Last Admin: 03/08/18 07:52 Dose: 325 mg Sodium Chloride (Flush - Normal Saline) 10 ml IVF Q12HR [facility] Last Admin: 03/08/18 07:52 Dose: 10 ml Sodium Chloride (Flush - Normal Saline) 10 ml IVF PRN PRN PRN Reason: Saline Flush Last Admin: 03/04/18 21:10 Dose: 10 ml Tamsulosin HCl (Flomax) 0.4 mg PO DAILY [facility] Last Admin: 03/08/18 07:51 Dose: 0.4 mg Tramadol HCl (Ultram) 50 mg PO Q6H PRN PRN Reason: Moderate Pain (4-6) Last Admin: 03/08/18 15:52 Dose: 50 mg
[2018-03-08] MEDS: Acetaminophen 325 MG TAB PO PRN (21:03)
[2018-03-08] MEDS: Docusate 100 MG CAP PO SCH (21:03)
[2018-03-08] MEDS: Nicotine 21 MG PATCH TD SCH (21:03)
[2018-03-08] MEDS: Lactated Ringer's 1,000 ML IV SCH ×2 (21:11→21:12)
[2018-03-09] MEDS ORDERED: Furosemide 40 MG/4 ML VIAL SLOW IVP SCH ×2 (06:00→15:00)
[2018-03-09 07:42] LABS: #Eosinphils 0.1 thou/uL (0.0-0.7); #Lymphocytes 0.6 thou/uL (1.20-3.40); #Monocytes 0.3 thou/uL (0.11-0.59); %Basophils 0.4 % (0.0-1.0); %Lymphocytes 5.6 % (21.0-51.0); %Monocytes 2.9 % (0.0-10.0); %Neutrophils 90.1 % (42.0-75.0); Hemoglobin 8.2 g/dL (12.0-16.0); Mean Corpuscular HGB CONC 33.1 g/dL (32.0-36.0); Mean Corpuscular Hemoglobin 31.5 pg (27.0-31.0); Mean Corpuscular Volume 95.1 fL (78.0-98.0); Mean Platelet Volume 9.7 fL (7.4-10.4); Platelet Count 176 thou/uL (130-400); White Blood Cell (WBC) Count 11.1 thou/uL (4.8-10.8)
[2018-03-09 07:56] LABS: Anion Gap 19 mmol/L (10-20); BUN (Urea Nitrogen) 58 mg/dL (9.8-20.1); Calc. Creatinine Clearance 31 mL/min (70-130); Calcium 7.9 mg/dL (7.8-10.44); Carbon Dioxide 17 mmol/L (22-29); Chloride 107 mmol/L (98-107); Estimated GFR-MDRD 24; Glucose 195 mg/dL (70-105); Potassium 3.4 mmol/L (3.5-5.1); Sodium 140 mmol/L (136-145)
[2018-03-09] MEDS: Ciprofloxacin Lactate/D5W 200 MG in Premix Bag 1 BAG IVPB SCH (10:08)
[2018-03-09] MEDS: Polyethylene Glycol 3350 17 GM Packet PO SCH (10:08)
[2018-03-09] MEDS: Sodium Bicarbonate Tab 325 MG TAB PO SCH ×2 (10:11→21:01)
[2018-03-09] MEDS: Tamsulosin HCl 0.4 MG CAP PO SCH (10:11)
[2018-03-09] MEDS: Aspirin 325 mg Enteric Coated Tablet PO SCH (10:12)
[2018-03-09] MEDS: traMADol HCl 50 MG TAB PO PRN ×3 (10:12→21:00)
[2018-03-09] MEDS: Docusate 100 MG CAP PO SCH ×2 (10:25→21:02)
--- NOTE | 2018-03-09 10:47 | PDOC.PN ---
- Subjective Encounter Start Date: 03/09/18 Encounter Start Time: 10:00 Subjective: awake, responds well to verbal questions -: no sob but is on non rebreather -: takes shallow breaths - Objective Resuscitation Status: Resuscitation Status DNR:Do Not Resuscitate Vital Signs & Weight: Vital Signs (12 hours) Temp Pulse Resp BP Pulse Ox 03/09/18 08:00 97.8 F 107 H 18 121/66 99 03/09/18 07:07 94 24 H 94 L 03/09/18 02:33 90 L 03/09/18 00:56 88 24 H 90 L Weight Weight 151 lb 10.848 oz Most Recent Monitor Data Heart Rate from ECG 104 NIBP 125/56 NIBP BP-Mean 67 Respiration from ECG 19 SpO2 95 I&O: 03/08/18 03/09/18 03/10/18 06:59 06:59 06:59 Intake Total 852 2200 Output Total 890 1625 Balance -38 575 Result Diagrams: 03/09/18 06:00 03/09/18 06:00 Additional Labs: Accuchecks 03/09/18 03/08/18 03/08/18 04:09 19:38 16:50 POC Glucose 205 H 166 H 155 H 03/08/18 11:33 POC Glucose 152 H Phys Exam - Physical Examination HEENT: PERRLA, moist MMs Neck: no JVD, supple Respiratory: no wheezing, no rales rhonchi++ Cardiovascular: RRR, no significant murmur Gastrointestinal: soft, non-tender, positive bowel sounds Musculoskeletal: pulses present left UE edema with hemiplegia and contracture, has bka and aka left hemiplegia Dx/Plan (1) ALEISHA (acute kidney injury) Code(s): N17.9 - ACUTE KIDNEY FAILURE, UNSPECIFIED Status: Acute Comment: s/ p right nephrostomy tube 03/05/18, has right UPJ obstruction (2) Urinary tract infection Status: Acute Qualifiers: Urinary tract infection type: acute cystitis Hematuria presence: without hematuria Qualified Code(s): N30.00 - Acute cystitis without hematuria (3) Acute encephalopathy Code(s): G93.40 - ENCEPHALOPATHY, UNSPECIFIED Status: Acute (4) Sepsis Code(s): A41.9 - SEPSIS, UNSPECIFIED ORGANISM Status: Acute Qualifiers: Sepsis type: sepsis due to unspecified organism Qualified Code(s): A41.9 - Sepsis, unspecified organism (5) Dehydration, moderate Code(s): E86.0 - DEHYDRATION Status: Resolved (6) Hemiparesis due to old cerebrovascular accident Code(s): I69.359 - HEMIPLGA FOLLOWING CEREBRAL INFARCTION AFFECTING UNSP SIDE Status: Chronic Comment: left hemiplegia with contracture in UE (7) h/o left nephrectomy Status: Chronic (8) PVD (peripheral vascular disease) Code(s): I73.9 - PERIPHERAL VASCULAR DISEASE, UNSPECIFIED Status: Chronic (9) Anemia Code(s): D64.9 - ANEMIA, UNSPECIFIED Status: Chronic Qualifiers: Anemia type: unspecified type Qualified Code(s): D64.9 - Anemia, unspecified (10) CAD (coronary artery disease) Code(s): I25.10 - ATHSCL HEART DISEASE OF [place] CORONARY ARTERY W/O ANG PCTRS Status: Chronic Qualifiers: Coronary Disease-Associated Artery/Lesion type: [place] artery [place] vs. transplanted heart: [place] heart Associated angina: with stable angina Qualified Code(s): I25.118 - Atherosclerotic heart disease of [place] coronary artery with other forms of angina pectoris (11) DM type 2 (diabetes mellitus, type 2) Status: Chronic Qualifiers: Diabetes mellitus computer terminal operator insulin use: with correction use Diabetes mellitus complication status: with kidney complications Diabetes mellitus complication detail: with chronic kidney disease Chronic kidney disease stage : stage 3 (moderate) Qualified Code(s): E11.22 - Type 2 diabetes mellitus with diabetic chronic kidney disease; N18.3 - Chronic kidney disease, stage 3 ( moderate); Z79.4 - oil heaterman (current) use of insulin (12) HLD (hyperlipidemia) Code(s): E78.5 - HYPERLIPIDEMIA, UNSPECIFIED Status: Chronic Qualifiers: Hyperlipidemia type: unspecified Qualified Code(s): E78.5 - Hyperlipidemia , unspecified (13) HTN (hypertension) Code(s): I10 - ESSENTIAL (PRIMARY) HYPERTENSION Status: Chronic Qualifiers: Hypertension type: essential hypertension Qualified Code(s): I10 - Essential (primary) hypertension (14) NSTEMI (non-ST elevated myocardial infarction) Code(s): I21.4 - NON-ST ELEVATION (NSTEMI) MYOCARDIAL INFARCTION Status: Resolved (15) Anasarca associated with disorder of kidney Code(s): N04.9 - NEPHROTIC SYNDROME WITH UNSPECIFIED MORPHOLOGIC CHANGES Status: Acute (16) PNA (pneumonia) Code(s): J18.9 - PNEUMONIA, UNSPECIFIED ORGANISM Status: Acute Qualifiers: Pneumonia type: due to unspecified organism Laterality: bilateral - Plan repeat cxr today for f/u, is still requiring nonrebreather -: renal function is stabilizing -: has nephrostomy tube with drainage of 400ml last 24hrs -: total output is 1625 including rizzo. -: change lasix to qd, cipro for uti, lactated ringers and flomax * . Prognosis is guarded encourage po intake, oob to chair, incentive spirometry Review of Systems - Medications/Allergies Allergies/Adverse Reactions: Allergies Allergy/AdvReac Type Severity Reaction Status Date / Time codeine Allergy Severe Short of Verified 10/09/15 22:41 Breath hydrocodone Allergy Emesis Verified 10/09/15 22:41 morphine Allergy Verified 10/09/15 22:41 promethazine HCl Allergy Emesis Verified 10/09/15 22:41 [From Phenergan] BLACK IBRAHIM SODA Allergy Mild ITCH Uncoded 10/18/14 14:28 Medications: Current Medications Acetaminophen (Tylenol) 650 mg PO Q4H PRN PRN Reason: Headache/Fever or Pain Last Admin: 03/08/18 21:03 Dose: 650 mg Acetaminophen (Tylenol) 650 mg [place] Q4H PRN PRN Reason: Headache/Fever or Pain Last Admin: 03/04/18 21:09 Dose: 650 mg Albuterol/Ipratropium (Duoneb) 3 ml NEB [id number] [facility] Last Admin: 03/09/18 07:07 Dose: 3 ml Aspirin (Ecotrin) 325 mg PO DAILY [facility] Last Admin: 03/09/18 10:12 Dose: 325 mg Bisacodyl (Dulcolax) 10 mg PO DAILYPRN PRN PRN Reason: Constipation Last Admin: 03/02/18 23:18 Dose: 10 mg Dextrose/Water (Dextrose 50%) 25 gm SLOW IVP PRN PRN PRN Reason: Hypoglycemia Docusate Sodium (Colace) 100 mg PO BID [facility] Last Admin: 03/09/18 10:25 Dose: 100 mg Furosemide (Lasix) 40 mg SLOW IVP DAILY [facility] Glucagon (Glucagon) 1 mg IM PRN PRN PRN Reason: Hypoglycemia Dextrose/Water (D5w) 1,000 mls @ 0 mls/hr IV .Q0M PRN PRN Reason: Hypoglycemia Ciprofloxacin/Dextrose 200 mg/ (Device) 100 mls @ 100 mls/hr IVPB 1000 [facility] Last Admin: 03/09/18 10:08 Dose: 100 mls Lactated Ringer's (Lactated Ringer's) 1,000 mls @ 75 mls/hr IV .[id number] [facility] Last Admin: 03/08/18 21:12 Dose: 1,000 mls Insulin Human Lispro (Humalog) 0 units [place] .MILD SLIDING SCALE PRN PRN Reason: Mild Correctional Scale Last Admin: 03/07/18 13:45 Dose: 2 unit Miscellaneous Medication (Pharmacy To Dose) 1 each IVPB PRN PRN PRN Reason: Pharmacy to dose Nicotine (Nicoderm Patch) 21 mg TD Q24HR [facility] Last Admin: 03/08/18 21:03 Dose: Not Given Polyethylene Glycol (Miralax) 17 gm PO DAILY [facility] Last Admin: 03/09/18 10:08 Dose: 17 gm Sodium Bicarbonate (Bicarbonate, Sodium) 325 mg PO BID [facility] Last Admin: 03/09/18 10:11 Dose: 325 mg Sodium Chloride (Flush - Normal Saline) 10 ml IVF Q12HR [facility] Last Admin: 03/09/18 10:24 Dose: 10 ml Sodium Chloride (Flush - Normal Saline) 10 ml IVF PRN PRN PRN Reason: Saline Flush Last Admin: 03/04/18 21:10 Dose: 10 ml Tamsulosin HCl (Flomax) 0.4 mg PO DAILY [facility] Last Admin: 03/09/18 10:11 Dose: 0.4 mg Tramadol HCl (Ultram) 50 mg PO Q6H PRN PRN Reason: Moderate Pain (4-6) Last Admin: 03/09/18 10:12 Dose: 50 mg
[2018-03-09] MEDS: Lactated Ringer's 1,000 ML IV SCH (10:59)
--- NOTE | 2018-03-09 11:31 | PRG ---
DATE OF SERVICE: 03/09/2018 SUBJECTIVE: This is a 62-year-old female being seen for acute kidney injury. The patient denies any nausea, vomiting or chest pain. PHYSICAL EXAMINATION: GENERAL: Patient is awake. VITAL SIGNS: Afebrile, pulse 94, breathing at 24, blood pressure was 121/66. OBJECTIVE: See above. Awake, alert, in no acute distress. GENERAL APPEARANCE AND MENTAL STATUS: Fair. HEAD/NECK: Normocephalic. Atraumatic. EYES: EOMI. No deformity. EARS: Clear. No ulcers. NOSE: Intact. No lesions. MOUTH: Clear. No discharge. THROAT: Clear. No exudate. LUNGS: Clear. No crackles. CARDIAC: S1, S2. No rub. ABDOMEN: Benign. BS+. GENITALIA/RECTUM: Prather absent. BACK/EXTREMITIES: Edema 0+ Ulcer- NEUROLOGICAL: Alert and motor intact. SKIN: Rash- Bruise- LYMPHATICS: Edema- Ulcer- LABORATORY DATA: Hemoglobin 8.2, creatinine 2.08. GFR 24, potassium 3.4. ASSESSMENT: 1. Acute kidney injury with chronic kidney disease, improved. 2. Acute tubular necrosis, improved. 3. Hypokalemia. Recommend 20 mEq of potassium. 4. Anemia, stable. 5. Medications based on glomerular filtration rate are appropriate 6. Respiratory failure. Patient is on 100% nonrebreather will order a CT scan of the chest and cont inue Lasix. 7. Hypokalemia. Recommend potassium replacement ordered.
--- NOTE | 2018-03-09 11:39 | RAD ---
PORTABLE CHEST 1 VIEW: DATE: 03/09/18. TIME: 10:11 a.m. HISTORY: Shortness of breath. FINDINGS/IMPRESSION: Comparison is made with the exam of 03/04/18. Interval worsening of bilateral parenchymal changes has occurred in the interim. Right-sided central line remains in place. No pneumothoraces or large effusions are seen. Small bilateral effusions ar e again noted. POS: [facility]
--- NOTE | 2018-03-09 12:39 | CT ---
CT THORAX WITHOUT IV CONTRAST: 03/09/2018 HISTORY: Dyspnea/hypoxia. COMPARISON: CT abdomen from 03/04/2018. FINDINGS: There are diffuse ground glass opacities and patchy air space opacities seen throughout the lungs hernandez aterally, which have increased from the study on 03/04/2018. There are areas of interstitial thicken ing as well. While findings are overall nonspecific, findings may be related to either pulmonary reba ma or an infectious process. ARDS is also a differential consideration. There are small bilateral pleural effusions with associated atelectasis also seen on prior exam, alth ough the left pleural effusion is smaller in size. Vascular calcifications are seen in the coronary arteries, as well as involving the thoracic and visu alized upper abdominal aorta. There is evidence of prior granulomatous disease with calcified right hilar lymph nodes and calcified granuloma at the right lung base. A few mildly enlarged mediastinal lymph nodes are present with precarinal lymph node measuring 1.3 cm in short axis dimension and subcarinal lymph node measures 1.6 cm in short axis dimension. This cou ld be reactive in origin. The visualized upper abdomen demonstrates post cholecystectomy changes. There is now evidence of a right nephrostomy tube, with resolution of the previously seen hydronephro sis. The calculus within the region of the right UPJ is incompletely imaged but does persist. There is now increased density of the right kidney when compared to the prior noncontrast CT scan examinat ion. The right kidney is also heterogeneous in appearance. Findings are likely related to interval administration of intravenous contrast, likely administered during placement of the nephrostomy tube. However, no contrast is seen in the collecting system, and the heterogeneity and increased density of the kidneys suggests decreased renal function. A 2.3 cm hypodense lesion is seen in the superior pole right kidney, which cannot be further characterized. There is a focal area of increased density seen immediately adjacent to the nephrostomy tube within t he right kidney. This could be related to contrast secondary to recent procedure, but follow-up eval uation is recommended. There is a small amount of free fluid seen in the left upper quadrant, also noted on the prior exam, but does appear mildly increased from the prior study. Degenerative changes are seen in the spine. A right internal jugular vein central venous catheter is noted in place, with the tip terminating in the proximal SVC. IMPRESSION: 1. Diffuse ground glass and patchy air space opacities throughout the lungs bilaterally, which have increased from CT abdomen on 03/04/2018. Findings are nonspecific and could be related to pulmonary edema or an infectious process, and atypical pneumonia is a possibility; however, acute respiratory d istress syndrome (ARDS) could also give this appearance. 2. Small bilateral pleural effusions and atelectasis. 3. Increased density right kidney. The patient was administered intravenous contrast during nephros yolande tube placement, and findings are likely related to retention of contrast and suggest decreased f unction of the right kidney. There is evidence of left nephrectomy. 4. Hypodense lesion in the superior pole, right kidney, which cannot be further characterized on thi s examination. 5. Right nephrolithiasis. 6. Right nephrostomy tube in place. Immediately adjacent to the nephrostomy tube, within the renal parenchyma, is a linear focus of increased density, which could be related to residual contrast withi n the renal parenchyma from recent nephrostomy tube placement. Given recent procedure, this limits e valuation for hemorrhage. As a result, follow-up evaluation is recommended. A nonenhanced CT scan c an be performed for follow-up evaluation. 7. Small amount of free fluid in the left upper quadrant, incompletely imaged. POS: [facility]
[2018-03-09] MEDS: Potassium Chloride 20 MEQ TAB PO SCH ×2 (14:00→14:44)
[2018-03-09 15:04] LABS: Actual Bicarbonate (HCO3a) 19.6 mEq/L (22-28); Base Excess (BEa) -4.6 mEq/L (-2.0 to +3.0); CO2 Tension 32.7 mmHg (35.0-45.0); O2 Tension (PaO2) 61.3 mmHg (> 80.0)
[2018-03-09 15:05] LABS: ALV-art Gradient 610.825 (0-20); Carboxyhemoglobin (COHb) 0.6 gm% (0.0-3.0); Hemoglobin (Hb) 9.3 g/dL (12.0-16.0); Puncture Site RRA
[2018-03-09] MEDS: Nicotine 21 MG PATCH TD SCH (21:02)
[2018-03-10] MEDS ORDERED: Fentanyl 100 MCG/2 ML VIAL SLOW IVP SCH (01:00)
[2018-03-10] MEDS: traMADol HCl 50 MG TAB PO PRN (02:42)
[2018-03-10] MEDS ORDERED: Ondansetron HCl/PF 4 MG/2 ML Vial IVP PRN (03:48)
[2018-03-10 05:47] LABS: Anion Gap 20 mmol/L (10-20); BUN (Urea Nitrogen) 52 mg/dL (9.8-20.1); Calc. Creatinine Clearance 37 mL/min (70-130); Calcium 7.9 mg/dL (7.8-10.44); Carbon Dioxide 17 mmol/L (22-29); Chloride 106 mmol/L (98-107); Estimated GFR-MDRD 30; Glucose 249 mg/dL (70-105); Potassium 3.8 mmol/L (3.5-5.1); Sodium 139 mmol/L (136-145)
[2018-03-10 06:17] LABS: Band 16 % (5-11); Hemoglobin 8.7 g/dL (12.0-16.0); Lymphocytes 1 % (21-51); MDiff Complete? YES; Mean Corpuscular HGB CONC 33.7 g/dL (32.0-36.0); Mean Corpuscular Hemoglobin 32.6 pg (27.0-31.0); Mean Corpuscular Volume 96.5 fL (78.0-98.0); Mean Platelet Volume 9.6 fL (7.4-10.4); Monocytes 3 % (0-10); Neutrophil 80 % (42-75); Platelet Count 170 thou/uL (130-400); RBC Distribution Width 12.4 % (11.5-14.5); Red Blood Cell (RBC) Count 2.67 mill/uL (4.20-5.40); White Blood Cell (WBC) Count 14.7 thou/uL (4.8-10.8)
[2018-03-10] MEDS ORDERED: Furosemide 40 MG/4 ML VIAL SLOW IVP SCH (09:00)
[2018-03-10] MEDS: Sodium Bicarbonate Tab 325 MG TAB PO SCH (09:25)
[2018-03-10] MEDS: Docusate 100 MG CAP PO SCH (09:25)
[2018-03-10] MEDS: Aspirin 325 mg Enteric Coated Tablet PO SCH (09:25)
[2018-03-10] MEDS: Tamsulosin HCl 0.4 MG CAP PO SCH (09:25)
[2018-03-10] MEDS: Polyethylene Glycol 3350 17 GM Packet PO SCH (09:25)
--- NOTE | 2018-03-10 11:21 | PRG ---
DATE OF SERVICE: 03/10/2018 SUBJECTIVE: This is a 62-year-old female being seen for acute kidney injury. The patient denies any nausea, vomiting or chest pain. PHYSICAL EXAMINATION: GENERAL: Patient is awake, alert, in mild to moderate distress. VITAL SIGNS: Afebrile, pulse 100, breathing at 24, blood pressure 114/73. OBJECTIVE: See above. Awake, alert, in no acute distress. GENERAL APPEARANCE AND MENTAL STATUS: Fair. HEAD/NECK: Normocephalic. Atraumatic. EYES: EOMI. No deformity. EARS: Clear. No ulcers. NOSE: Intact. No lesions. MOUTH: Clear. No discharge. THROAT: Clear. No exudate. LUNGS: Clear. No crackles. CARDIAC: S1, S2. No rub. ABDOMEN: Benign. BS+. GENITALIA/RECTUM: Prather absent. BACK/EXTREMITIES: Edema 0+ Ulcer- NEUROLOGICAL: Alert and motor intact. SKIN: Rash- Bruise- LYMPHATICS: Edema- Ulcer- LABORATORY: Hemoglobin 8.7, creatinine 1.75. ASSESSMENT AND PLAN: 1. Acute kidney injury, improved due to acute tubular necrosis and hydronephrosis. 2. Chronic kidney disease stage 3, improved. 3. Metabolic acidosis, stable. 4. Hypokalemia, stable. 5. Medication based on glomerular filtration rate are appropriate. No indication for dialysis at this time.
--- NOTE | 2018-03-10 13:09 | PDOC.PN ---
- Subjective Encounter Start Date: 03/10/18 Encounter Start Time: 13:07 Ms. Jerez was seen today in follow-up of acute respiratory failure. she is awake, and she tells me she is not hurting, and she does not have any dyspnea. She says " I'm alright" .She is asking for some ice water. - Objective Resuscitation Status: Resuscitation Status DNR:Do Not Resuscitate MAR Reviewed: Yes Vital Signs & Weight: Vital Signs (12 hours) Temp Pulse Resp BP Pulse Ox 03/10/18 11:23 24 H 88 L 03/10/18 11:22 97.1 F L 106 H 22 H 103/63 94 L 03/10/18 09:37 58 L 03/10/18 07:32 98.1 F 108 H 20 114/73 96 Weight Admit Weight 151 lb 10.848 oz Weight 151 lb 10.848 oz Most Recent Monitor Data Heart Rate from ECG 104 NIBP 125/56 NIBP BP-Mean 67 Respiration from ECG 19 SpO2 95 I&O: 03/09/18 03/10/18 03/11/18 06:59 06:59 06:59 Intake Total 2200 1890 Output Total 1625 1200 Balance 575 690 Result Diagrams: 03/10/18 04:30 03/10/18 04:30 Additional Labs: Accuchecks 03/10/18 03/10/18 03/09/18 11:25 05:20 19:52 POC Glucose 250 H 275 H 188 H 03/09/18 16:54 POC Glucose 184 H Phys Exam - Physical Examination HEENT: PERRLA + rales bilaterally, and rhonchi, deacreased breath sounds at the bases. Cardiovascular: RRR, no significant murmur, no rub no gallop Gastrointestinal: soft, non-tender, no distention, positive bowel sounds Musculoskeletal: edema present 1+ lower extremity edema Dx/Plan (1) Sepsis secondary to UTI Code(s): A41.9 - SEPSIS, UNSPECIFIED ORGANISM; N39.0 - URINARY TRACT INFECTION, SITE NOT SPECIFIED Status: Acute (2) Obstructive uropathy Code(s): N13.9 - OBSTRUCTIVE AND REFLUX UROPATHY, UNSPECIFIED Status: Acute (3) Right nephrolithiasis Code(s): N20.0 - CALCULUS OF KIDNEY Status: Acute (4) h/o left nephrectomy Status: Chronic (5) NSTEMI (non-ST elevated myocardial infarction) Code(s): I21.4 - NON-ST ELEVATION (NSTEMI) MYOCARDIAL INFARCTION Status: Resolved (6) ARF (acute renal failure) Status: Acute (7) Physical deconditioning Code(s): R53.81 - OTHER MALAISE Status: Chronic (8) CVA (cerebral vascular accident) Code(s): I63.9 - CEREBRAL INFARCTION, UNSPECIFIED Status: Chronic Qualifiers: CVA mechanism: occlusion Precerebral and cerebral artery: middle cerebral artery, right Qualified Code(s): I63.511 - Cerebral infarction due to unspecified occlusion or stenosis of right middle cerebral artery (9) DM type 2 (diabetes mellitus, type 2) Status: Chronic 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 Urine Culture is growing Klebsiella, which is sensitive to Quinolones * Obstrutive Uropathy- she is s/p Right nephrostomy tube * Acute respiratory failure with hypoxemia- due to ARDS- continue supplemental oxygen via non-rebreather- however, without mechanical intubation, the mortality from this is very high ( even with mechanical ventilation mortality rates can be as high as 60%). She is DNR. She has multiple other co morbid conditions. I am told her son has been made aware of her condition, as well as poor prognosis. He is agreeable to Hospice. Therefore will not treat aggressively. * Acute kidney injury- improved * DM- blood glucose is variable- continue SSI * HTN- blood pressure is stable * Plan is for discharge with Hospice
[2018-03-10] MEDS: Ciprofloxacin Lactate/D5W 200 MG in Premix Bag 1 BAG IVPB SCH (14:31)
[2018-03-10 19:47] VITALS: BP 108/74; TEMP 97.8
[2018-03-11] MEDS ORDERED: Ciprofloxacin Lactate/D5W 200 MG in Premix Bag 1 BAG IVPB SCH (03:00)
--- NOTE | 2018-03-11 03:11 | DIS ---
DATE OF ADMISSION: 03/01/2018 DATE OF DISCHARGE: 03/10/2018 DISCHARGE DISPOSITION: To [facility] with hospice/inpatient hospice. 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 PROCEDURES DONE DURING HOSPITALIZATION: Echo with 2D Doppler done showed an EF of 40% to 45%. Abdominal and pelvic CAT scan done showed high grade obstruction at the ureteropelvic junction due to right renal calculus measuring up to 1.[address] chest showed bilateral ground glass opacities and patchy airspace opacities consistent with ARDS. Blood cultures x2 no growth. Urine culture grew Klebsiella sensitive to all antibiotics except nitrofurantoin. Had an initial white count of 18 with 17% bands. Discharge creatinine is 1.7, that was 5.52 on 03/04/2018 with admitting creatinine of 2.86. Troponin I was indeterminate, peaking up to 1.2. DISCHARGE MEDICATIONS: Cymbalta 30 mg p.o. daily, Neurontin 300 mg p.o. 3 times daily, multivitamin 1 tab once daily, Zocor 20 mg p.o. at bedtime, aspirin 325 mg daily, ciprofloxacin 250 mg twice daily, Lasix 40 mg daily, Flomax 0.4 mg p.o. daily. ALLERGIES: Allergic to CODEINE, HYDROCODONE, MORPHINE, PROMETHAZINE. INPATIENT CONSULTS: Dr. Mendes for Pulmonology, Dr. Zeng for Urology, Dr. Huggins for Nephrology. BRIEF COURSE DURING HOSPITALIZATION: The patient initially got admitted on 10/2017 after she was sent from [facility] for altered mental state and not herself. She was essentially admitted for sepsis with urinary tract infection. Her initial creatinine was 2.8. The patient was admitted to ICU requiring pressors initially. Despite IV hydration the patient's creatinine was creeping up to 5. A CT of the abdomen and pelvis was obtained. The patient has only one kidney that is on the right and has had prior history of left nephrectomy. There was right UPJ stone with obstruction and severe hydronephrosis. Attempts at placing stent were unsuccessful as the patient was not a candidate for anesthesia. Right percutaneous nephrostomy tube was placed by Interventional Radiology for diversion. The patient continued to worsen during her stay here requiring nonrebreather. A subsequent chest x-ray done showed severe pulmonary opacities, suggestive of ARDS. She continued to decline with acute respiratory failure. Her renal function improved after placement of a nephrostomy tube. She has multiple medical comorbid conditions as mentioned above. Son and patient did not want any aggressive therapy and her son wanted her to go into hospice at the [facility]/inpatient hospice. Her overall prognosis is very poor. A total of 35 minutes was spent on discharge plan. Please see a [id number] documentation for the day of discharge on [facility]. [facility]
== END 2018-03-10 20:20 | disposition hospice, inpatient (51) | DRG 871 ==
LOC: ERS 15:33 → CCU 18:49 → T4-B 03-03 17:01
PROVIDERS: ADMIT Internal Medicine; ATTEND Internal Medicine
PROC: 0T9030Z Drainage of Right Kidney with Drainage Device, Percutaneous Approach (ICD-10-PCS; principal; 2018-03-05)
DX: A41.9 Sepsis, unspecified organism (principal); G93.40 Encephalopathy, unspecified; I21.4 Non-ST elevation (NSTEMI) myocardial infarction; N17.0 Acute kidney failure with tubular necrosis; J18.9 Pneumonia, unspecified organism; J96.01 Acute respiratory failure with hypoxia; I69.354 Hemiplegia and hemiparesis following cerebral infarction affecting left non-dominant side; E87.2 Acidosis; N13.6 Pyonephrosis; N18.3 Chronic kidney disease, stage 3 (moderate); Z89.511 Acquired absence of right leg below knee; E78.5 Hyperlipidemia, unspecified; I12.9 Hypertensive chronic kidney disease with stage 1 through stage 4 chronic kidney disease, or unspecified chronic kidney disease; I25.10 Atherosclerotic heart disease of native coronary artery without angina pectoris; I73.9 Peripheral vascular disease, unspecified; E86.0 Dehydration; F17.210 Nicotine dependence, cigarettes, uncomplicated; Z91.19 Patient's noncompliance with other medical treatment and regimen; D64.9 Anemia, unspecified; I95.9 Hypotension, unspecified; E11.22 Type 2 diabetes mellitus with diabetic chronic kidney disease; E03.9 Hypothyroidism, unspecified; G25.81 Restless legs syndrome; Z89.612 Acquired absence of left leg above knee; Z90.5 Acquired absence of kidney; F41.9 Anxiety disorder, unspecified; F32.9 Major depressive disorder, single episode, unspecified; Z66 Do not resuscitate; Z88.5 Allergy status to narcotic agent; Z88.8 Allergy status to other drugs, medicaments and biological substances; Z79.899 Other long term (current) drug therapy; Z79.4 Long term (current) use of insulin; E87.6 Hypokalemia; R62.7 Adult failure to thrive
CPT/HCPCS: 36415; 36416; 36430; 36556; 50431; 50432; 71045; 71250; 74176; 76775; 80048; 80202; 82805; 83605; 85025; 85610; 85730; 86704; 86706; 86803; 86850; 86900; 86901; 87040; 87340; 93005; 93306; 94640; 96361; 96365; 96366; 96367; 96375; A4216; C1729; G8978-GP-CN; G8979-GP-CN; G8980-GP-CN; J0131; J0696; J0744; J1940; J2185; J2920; J3010; J3370; J3480; J7050; J7070; J7620; P9035